=== PATIENT | female | born 1955 | race Caucasian/White ===

== ENCOUNTER 2018-10-02 19:45 | Inpatient (IN) | payer OTHER, BC | END 2018-10-12 14:43 | disposition home or self-care (01) | LOC: JICU 10-09 11:23 → J8W 10-11 11:27 → JERBED 10-03 01:15 → JER 19:45 → J7W 10-03 05:44 ==

== ENCOUNTER 2018-11-09 14:04 | Inpatient (IN) | payer OTHER, BC ==
--- NOTE | 2018-11-09 14:17 | PDOC ---
Rapid Medical Evaluation Chief Complaint: Pain, Acute Time Seen by Provider: 11/09/18 14:12 Medical Evaluation: Allergies Allergy/AdvReac Type Severity Reaction Status Date / Time No Known Allergies Allergy Verified 10/23/18 12:18 11/09/18 14:13 I have performed a brief in-person evaluation of this patient. The patient presents with a chief complaint of: right foot osteo- sent from wound care, + pain , no fevers Pertinent physical exam findings: dressed I have ordered the following: CBC/ CMP/IV - NO Radiology = MRI foot done here yesterday The patient will proceed to the ED for further evaluation. Discharge Disposition - Diagnosis Foot infection - Referrals - Patient Instructions - Post Discharge Activity
[2018-11-09 14:57] LABS: BASO % 0.7 % (0-2.0); EOS % 1.9 % (0-4.5); HEMATOCRIT 40.3 % (32.4-45.2); HEMOGLOBIN 13.8 GM/dL (10.7-15.3); LYMPH % 33.9 % (8-40); MCHC 34.1 g/dl (32.0-36.0); MEAN CELL VOLUME 96.6 fl (80-96); MEAN PLT VOLUME 9.2 fl (7.5-11.1); MONO % 5.2 % (3.8-10.2); NEUT % 58.3 % (42.8-82.8); PLATELET COUNT 147 K/MM3 (134-434); RBC 4.18 M/mm3 (3.60-5.2); RDW 15.2 % (11.6-15.6); WHITE BLOOD COUNT 5.2 K/mm3 (4.0-10.0)
--- NOTE | 2018-11-09 15:04 | PDOC ---
History of Present Illness - General Chief Complaint: Pain, Acute Stated Complaint: WOUND CARE Time Seen by Provider: 11/09/18 14:12 History Source: Patient Exam Limitations: No Limitations - History of Present Illness Initial Comments: 11/09/18 15:04 63YOF with h/o recent LLE cellulitis (admitted in 09/2018), NIDDM (on metformin and Januvia), PVD, HTN, HLD, and metastatic breast carcinoma who p/w right foot pain and osteomyelitis as diagnosed on MRI performed here yesterday. She was instructed by Wound Care to come in to the ED for admission. She sees Dr. Cabrera for wound care/vascular, Dr. Anders for podiatry, and Dr. Spears for cardiology. She denies f/c/n/v/d/c, streaking redness, SOB, chest pain, abdominal pain, or other symptoms. Past History - Past Medical History Allergies/Adverse Reactions: Allergies Allergy/AdvReac Type Severity Reaction Status Date / Time No Known Allergies Allergy Verified 11/09/18 14:14 Home Medications: Ambulatory Orders Amlodipine Besylate [Norvasc -] 5 mg PO DAILY 10/03/18 Cholecalciferol (Vitamin D3) [Vitamin D3 -] 1,000 unit PO DAILY 10/03/18 Lisinopril/Hydrochlorothiazide [Lisinopril-Hctz 20-12.5 mg Tab] 1 each PO DAILY 10/03/18 Sitagliptin Phosphate [Januvia] 100 mg PO DAILY 10/03/18 metFORMIN HCL 1,500 mg PO DAILY 10/03/18 Apixaban [Eliquis] 5 mg PO BID #60 tablet 10/12/18 Metoprolol Succinate [Toprol XL -] 50 mg PO DAILY #30 tab.sr.24h 10/12/18 Rosuvastatin [Crestor -] 10 mg PO HS #30 tablet 10/12/18 [id number] 9 mg PO DAILY 11/09/18 Pioglitazone HCl [Actos] 30 mg PO DAILY 11/09/18 Cancer: Yes (metastatic breast cancer) CVA: No (2005) COPD: No Diabetes: Yes (medication induced) HTN: Yes - Surgical History Lung Surgery: Yes (node removed - 2014) Orthopedic Surgery: Yes (right knee maniscus repair - 2015) - Immunization History Immunization Up to Date: Yes - Suicide/Smoking/Psychosocial Hx Smoking History: Former smoker Have you smoked in the past 12 months: No Number of Cigarettes Smoked Daily: 20 If you are a former smoker, when did you quit?: 1MONTH Information on smoking cessation initiated: No 'Breaking Loose' booklet given: 10/03/18 Hx Alcohol Use: No Drug/Substance Use Hx: No Review of Systems - Review of Systems Able to Perform ROS?: Yes Comments:: 11/09/18 15:18 GEN: no fever, chills, malaise, generalized weakness, or weight change HEENT: no ear pain, sore throat, vision change, or eye pain CV: no chest pain, palpitations, lightheadedness, syncope, or edema RESP: no cough, wheezing, or SOB GI: no abdominal pain, nausea, vomiting, diarrhea, constipation, or white/black/ bloody stool : no dysuria, hematuria, incontinence, retention, bleeding, or discharge MSK: right foot pain, otherwise no neck/back pain, muscle weakness/pain, or joint swelling/pain NEURO: no headache, seizure, vertigo, numbness, tingling, or focal weakness PSYCH: no substance use, no behavior change SKIN: no jaundice, no rash ROS otherwise negative except as noted in HPI *Physical Exam - Vital Signs Last Vital Signs Temp Pulse Resp BP Pulse Ox 98.5 F 60 16 149/83 96 11/09/18 14:15 11/09/18 14:15 11/09/18 14:15 11/09/18 14:15 11/09/18 14:15 - Physical Exam Comments: 11/09/18 15:18 GENERAL: well-appearing, A/Ox4, no distress, answers questions appropriately, obese, very pleasant HEENT: PERRLA, EOMI, moist mucous membranes NECK/BACK: no midline ttp, no spinal stepoff or deformity, no hematoma, full ROM , neck supple CARDIOVASCULAR: regular rate/rhythm, normal S1S2, no MGR, strong peripheral pulses, capillary refill <2 seconds, extremities wwp, no edema LUNGS/RESPIRATORY: no respiratory distress, CTAB GI/ABDOMEN: symmetric [id number], normoactive BS, soft, no ttp, no midline pulsatile masses : no CVA tenderness EXTREMITIES: right 4th toe dorsum just overlying interphalangeal joint is a 1x1cm ulceration with small amount of purulent drainage with small amount of surrounding erythema but which is very tender to palpation, distal sensation intact, right DP pulse not palpable but foot is warm/well perfused and temperature is equal to contralateral side, no muscle atrophy, no acute deformity SKIN: warm and dry, no pallor, no jaundice, no rash, no bruising, no skin breakdown, no cuts, no lesions, no streaking erythema NEUROLOGICAL: GCS 15, CN II-XII grossly intact, 5/5 strength proximally and distally, no facial droop, strength and sensation all intact ED Treatment Course - LABORATORY CBC & Chemistry Diagram: 11/09/18 14:40 11/09/18 14:40 - ADDITIONAL ORDERS Additional order review: 11/09/18 14:40 RBC 4.18 MCV 96.6 H MCHC 34.1 RDW 15.2 MPV 9.2 Neutrophils % 58.3 Lymphocytes % 33.9 Monocytes % 5.2 Eosinophils % 1.9 Basophils % 0.7 Medical Decision Making - Medical Decision Making 11/09/18 15:46 63YOF with NIDDM p/w non-healing foot ulcer now diagnosed with osteomyelitis on MRI yesterday. Initial Vital Signs Temp Pulse Resp BP Pulse Ox 98.5 F 60 16 149/83 96 11/09/18 14:15 11/09/18 14:15 11/09/18 14:15 11/09/18 14:15 11/09/18 14:15 Exam: As noted in Physical Exam section. DDX IBNLT: osteomyelitis from infected foot ulcer, cellulitis, less likely necrotizing soft tissue infection, necrotizing myositis, septic arthritis, gangrene,sepsis,etc. W/U ordered: Labs as noted below, no imaging as EDUARDO completed yesterday [place] ordered: Ofirmev, vancomycin, Zosyn EKG: Reviewed; results as noted in ECG Review section. Laboratory Tests 11/09/18 11/09/18 14:40 14:40 WBC 5.2 RBC 4.18 Hgb 13.8 Hct 40.3 MCV 96.6 H MCH 33.0 MCHC 34.1 RDW 15.2 Plt Count 147 MPV 9.2 Absolute Neuts (auto) 3.0 Neutrophils % 58.3 Lymphocytes % 33.9 Monocytes % 5.2 Eosinophils % 1.9 Basophils % 0.7 Nucleated RBC % 0 Sodium 135 L Potassium 5.1 Chloride 100 Carbon Dioxide 27 Anion Gap 8 BUN 35.8 H Creatinine 1.2 Est GFR (CKD-EPI)AfAm 54.92 Est GFR (CKD-EPI)NonAf 47.39 Random Glucose 178 H Calcium 10.3 H Total Bilirubin 0.8 AST 23 ALT 18 Alkaline Phosphatase 57 Total Protein 7.7 Albumin 3.8 The Pt is unsafe for discharge at this time. They require further hospital observation, workup, and treatment with IV antibiotics. Patient sees Dr. Bonilla for primary care. I spoke with MICHELLE Chilel with Dr. Beauchamp/[facility] service (admission to them requested by patient's OP provider. Decision to Admit order is placed to Dr. Beauchamp. *DC/Admit/Observation/Transfer Diagnosis at time of Disposition: Osteomyelitis Qualifiers: Osteomyelitis type: unspecified type Osteomyelitis location: foot Laterality: right Qualified Code(s): M86.9 - Osteomyelitis, unspecified - Discharge Dispostion Condition at time of disposition: Guarded Decision to Admit order: Yes - Referrals - Patient Instructions - Post Discharge Activity
[2018-11-09 15:32] LABS: ALBUMIN 3.8 g/dl (3.4-5.0); BILIRUBIN,TOTAL 0.8 mg/dL (0.2-1); BLOOD UREA NITROGEN 35.8 mg/dL (7-18); CALCIUM 10.3 mg/dL (8.5-10.1); CREATININE 1.2 mg/dL (0.55-1.3); POTASSIUM 5.1 mmol/L (3.5-5.1); TOT PROT 7.7 g/dl (6.4-8.2)
[2018-11-09] MEDS ORDERED: SODIUM CHLORIDE 0.9% 500 ML INFUS.BAG IV ONE (15:38)
[2018-11-09] MEDS ORDERED: VANCOMYCIN HCL 1,500 MG in DEXTROSE 5%-WATER - 500 ML IVPB ONE (15:38)
[2018-11-09] MEDS ORDERED: PIPERACILLIN/TAZOB 4.5 GM 4.5 GM in DEXTROSE 5%-WATER 100 ML IVPB ONE (15:50)
[2018-11-09] MEDS ORDERED: PIPERACILLIN/TAZOB 4.5 GM 4.5 GM/100 ML BAG IVPB ONE (16:06)
[2018-11-09] MEDS ORDERED: ACETAMINOPHEN 500 MG TABLET (FP) PO ONE (17:14)
[2018-11-09] MEDS ORDERED: ACETAMINOPHEN 325 MG TABLET (FP) ONE (17:15)
--- NOTE | 2018-11-09 19:05 | HP ---
Admitting History and Physical - Admission Chief Complaint: R foot 4th digit wound History of Present Illness: Patient is a 63 y/o female with past medical history of LLE cellulitis ( admitted on 10/02/18), DM, PVD, HTN, HLD, R breast CA. Patient presented to ER at request of tool and die repair due to ulcer on R foot 4thoste digit. Patient had MRI done on 11/08/18 which showed osteomyelitis. History Source: Patient Limitations to Obtaining History: No Limitations - Past Medical History Cardiovascular: Yes: HTN, Hyperlipdemia Heme/Onc: Yes: Cancer (Breast CA) Endocrine: Yes: Diabetes Mellitus, Other (Hyperglycemia) - Past Surgical History Past Surgical History: Yes: Mastectomy, Stent - Smoking History Smoking history: Former smoker Have you smoked in the past 12 months: No Aproximately how many cigarettes per day: 20 If you are a former smoker, when did you quit?: 1MONTH - Alcohol/Substance Use Hx Alcohol Use: No - Social History Usual Living Arrangement: Yes: With Spouse ADL: Independent History of Recent Travel: No Home Medications - Allergies Allergies/Adverse Reactions: Allergies Allergy/AdvReac Type Severity Reaction Status Date / Time No Known Allergies Allergy Verified 11/09/18 14:14 - Home Medications Home Medications: Ambulatory Orders Amlodipine Besylate [Norvasc -] 5 mg PO DAILY 10/03/18 Cholecalciferol (Vitamin D3) [Vitamin D3 -] 1,000 unit PO DAILY 10/03/18 Lisinopril/Hydrochlorothiazide [Lisinopril-Hctz 20-12.5 mg Tab] 1 each PO DAILY 10/03/18 Sitagliptin Phosphate [Januvia] 100 mg PO DAILY 10/03/18 metFORMIN HCL 1,500 mg PO DAILY 10/03/18 Apixaban [Eliquis] 5 mg PO BID #60 tablet 10/12/18 Metoprolol Succinate [Toprol XL -] 50 mg PO DAILY #30 tab.sr.24h 10/12/18 Rosuvastatin [Crestor -] 10 mg PO HS #30 tablet 10/12/18 [id number] 9 mg PO DAILY 11/09/18 Pioglitazone HCl [Actos] 30 mg PO DAILY 11/09/18 Review of Systems - Review of Systems Constitutional: reports: No Symptoms Eyes: reports: No Symptoms HENT: reports: No Symptoms Neck: reports: No Symptoms Cardiovascular: reports: No Symptoms Respiratory: reports: No Symptoms Gastrointestinal: reports: No Symptoms Genitourinary: reports: No Symptoms Breasts: reports: No Symptoms Reported Musculoskeletal: reports: Other (toe pain) Integumentary: reports: No Symptoms Neurological: reports: No Symptoms Endocrine: reports: No Symptoms Hematology/Lymphatic: reports: No Symptoms Psychiatric: reports: No Symptoms Physical Examination Vital Signs: Vital Signs Temperature 98.0 F 11/09/18 17:06 Pulse Rate 66 11/09/18 17:06 Respiratory Rate 16 11/09/18 17:06 Blood Pressure 109/58 L 11/09/18 17:06 O2 Sat by Pulse Oximetry (%) 96 11/09/18 17:06 Constitutional: Yes: No Distress, Calm Eyes: Yes: Conjunctiva Clear HENT: Yes: Atraumatic Neck: Yes: Supple Cardiovascular: Yes: Regular Rate and Rhythm Respiratory: Yes: Regular, CTA Bilaterally Gastrointestinal: Yes: Normal Bowel Sounds, Soft Musculoskeletal: Yes: WNL Extremities: Yes: WNL Edema: No Integumentary: Yes: Other (erythema and edema R foot 4th digit) Wound/Incision: Yes: Dressing Dry and Intact Neurological: Yes: Alert, Oriented Psychiatric: Yes: Alert, Oriented Labs: CBC, BMP 11/09/18 14:40 11/09/18 14:40 Imaging - Results MRI: Report Reviewed Problem List - Problems (1) Osteomyelitis Assessment/Plan: -Podiatry, ID, and VAscular consulted -MRI results reviewed -Vancomycin and Zosyn given in ER Code(s): M86.9 - OSTEOMYELITIS, UNSPECIFIED Qualifiers: Osteomyelitis type: unspecified type Osteomyelitis location: foot Laterality: right Qualified Code(s): M86.9 - Osteomyelitis, unspecified (2) Carotid artery disease Assessment/Plan: -Rosuvastatin Code(s): I77.9 - DISORDER OF ARTERIES AND ARTERIOLES, UNSPECIFIED Qualifiers: (3) Diabetes Assessment/Plan: -Metformin, Actos, Januvia -ISS -BGM ACHS -HgA1c Code(s): E11.9 - TYPE 2 DIABETES MELLITUS WITHOUT COMPLICATIONS Qualifiers: (4) HTN (hypertension) Assessment/Plan: -HCTZ, Amlodipine, Lisinopril -lowNa diet Code(s): I10 - ESSENTIAL (PRIMARY) HYPERTENSION Qualifiers: Assessment/Plan see problem list dvt ppx
[2018-11-09 19:32] VITALS: BMI 32.4
[2018-11-09] MEDS: HEPARIN NA (PORCINE) 5,000 UNITS/ML 1ML VIAL SQ SCH (22:44)
[2018-11-09] MEDS: APIXABAN 5 MG TABLET PO SCH (22:44)
[2018-11-09] MEDS: ROSUVASTATIN CA 10 MG TABLET (FP) PO SCH (22:44)
[2018-11-09] MEDS: INSULIN SLIDING SCALE (NOVOLOG) 1 VIAL SQ SCH (22:47)
[2018-11-09] MEDS: ZOLPIDEM TARTRATE 5 MG TABLET PO PRN (23:29)
[2018-11-09] MEDS: ACETAMINOPHEN 325 MG TABLET (FP) PO PRN (23:29)
[2018-11-10] MEDS: INSULIN SLIDING SCALE (NOVOLOG) 1 VIAL SQ SCH ×4 (06:03→21:54)
[2018-11-10] MEDS: metFORMIN HCL 500 MG TABLET (FP) PO SCH (06:18)
[2018-11-10] MEDS: PIOGLITAZONE HCL 30 MG TABLET (FP) PO SCH (06:18)
[2018-11-10] MEDS: sitaGLIPtin PHOSPHATE 100 MG TABLET (FP) PO SCH (06:18)
[2018-11-10] MEDS: ACETAMINOPHEN 325 MG TABLET (FP) PO PRN ×3 (06:35→21:20)
[2018-11-10 07:41] LABS: BASO % 0.7 % (0-2.0); EOS % 6.2 % (0-4.5); HEMATOCRIT 34.8 % (32.4-45.2); LYMPH % 32.6 % (8-40); MCH 33.4 pg (25.7-33.7); MCHC 34.5 g/dl (32.0-36.0); MEAN CELL VOLUME 96.9 fl (80-96); MEAN PLT VOLUME 8.9 fl (7.5-11.1); MONO % 7.6 % (3.8-10.2); NEUT % 52.9 % (42.8-82.8); RDW 15.1 % (11.6-15.6); WHITE BLOOD COUNT 3.7 K/mm3 (4.0-10.0)
[2018-11-10 07:51] LABS: BILIRUBIN,TOTAL 0.4 mg/dL (0.2-1); BLOOD UREA NITROGEN 28.1 mg/dL (7-18); PHOSPHOROUS 3.3 mg/dL (2.5-4.9); POTASSIUM 3.8 mmol/L (3.5-5.1); TOT PROT 5.9 g/dl (6.4-8.2)
--- NOTE | 2018-11-10 08:00 | CON.ID ---
Consult Consult Specialty:: infectious diseases Referred by:: Hospitalist Reason for Consultation:: non healing wound of the right 4th toe - History of Present Illness Chief Complaint: ulcer on he rt 4th toe History of Present Illness: 63YOF with h/o recent LLE cellulitis , NIDDM (on metformin and Januvia), PVD, HTN, HLD, and metastatic breast carcinoma who p/w right foot pain and osteomyelitis as diagnosed on MRI done couple of days back. She was instructed by Wound Care to come in to the ED for admission. She sees Dr. Cabrera for wound care/vascular, Dr. Anders for podiatry, and Dr. Spears for cardiology. She denies f/c/n/v/d/c, streaking redness, SOB, chest pain, abdominal pain, or other symptoms. wound not healing - History Source History Provided By: Patient Limitations to Obtaining History: No Limitations - Past Medical History Cardio/Vascular: Yes: HTN, Hyperlipdemia ...: No Endocrine: Yes: Diabetes Mellitus, Other (Hyperglycemia) - Past Surgical History Past Surgical History: Yes: Mastectomy, Stent - Alcohol/Substance Use Hx Alcohol Use: No - Smoking History Smoking history: Former smoker Have you smoked in the past 12 months: No Aproximately how many cigarettes per day: 20 If you are a former smoker, when did you quit?: 1MONTH - Social History ADL: Independent History of Recent Travel: No Home Medications - Allergies Allergies/Adverse Reactions: Allergies Allergy/AdvReac Type Severity Reaction Status Date / Time No Known Allergies Allergy Verified 11/09/18 14:14 - Home Medications Home Medications: Ambulatory Orders Amlodipine Besylate [Norvasc -] 5 mg PO DAILY 10/03/18 Cholecalciferol (Vitamin D3) [Vitamin D3 -] 1,000 unit PO DAILY 10/03/18 Lisinopril/Hydrochlorothiazide [Lisinopril-Hctz 20-12.5 mg Tab] 1 each PO DAILY 10/03/18 Sitagliptin Phosphate [Januvia] 100 mg PO DAILY 10/03/18 metFORMIN HCL 1,500 mg PO DAILY 10/03/18 Apixaban [Eliquis] 5 mg PO BID #60 tablet 10/12/18 Metoprolol Succinate [Toprol XL -] 50 mg PO DAILY #30 tab.sr.24h 10/12/18 Rosuvastatin [Crestor -] 10 mg PO HS #30 tablet 10/12/18 [id number] 9 mg PO DAILY 11/09/18 Pioglitazone HCl [Actos] 30 mg PO DAILY 11/09/18 Review of Systems - Review of Systems Constitutional: reports: No Symptoms Eyes: reports: No Symptoms HENT: reports: No Symptoms Neck: reports: No Symptoms Cardiovascular: reports: No Symptoms Respiratory: reports: No Symptoms Gastrointestinal: reports: No Symptoms Genitourinary: reports: No Symptoms Musculoskeletal: reports: Other Integumentary: reports: Erythema (3rd finger of the rt foot) Neurological: reports: No Symptoms Endocrine: reports: No Symptoms Hematology/Lymphatic: reports: No Symptoms Psychiatric: reports: No Symptoms Physical Exam Vital Signs: Vital Signs Temperature 97.5 F L 11/10/18 06:41 Pulse Rate 65 11/10/18 06:41 Respiratory Rate 20 11/10/18 06:41 Blood Pressure 125/48 L 11/10/18 06:41 O2 Sat by Pulse Oximetry (%) 98 11/09/18 21:00 Constitutional: Yes: Well Nourished, No Distress, Calm HENT: Yes: Atraumatic, Normocephalic Neck: Yes: Supple, Trachea Midline Cardiovascular: Yes: Regular Rate and Rhythm Respiratory: Yes: Regular, CTA Bilaterally Gastrointestinal: Yes: Normal Bowel Sounds, Soft Musculoskeletal: Yes: WNL Extremities: Yes: Other Wound/Incision: Yes: Dressing Removed (non healing ulcer of the rt 4th toe) Neurological: Yes: Alert, Oriented Psychiatric: Yes: Alert, Oriented Labs: CBC, BMP 11/10/18 06:43 Imaging - Results MRI: Report Reviewed, Image Reviewed Assessment/Plan Assessment/Plan Problem List - Problems (1) Diabetes Code(s): E11.9 - TYPE 2 DIABETES MELLITUS WITHOUT COMPLICATIONS (2) Metastatic breast carcinoma Code(s): C50.919 - MALIGNANT NEOPLASM OF UNSP SITE OF UNSPECIFIED FEMALE BREAST (3) Cellulitis of foot without toes, left Code(s): L03.116 - CELLULITIS OF LEFT LOWER LIMB 4 osteo of the rt foot plan will start patient on ceftriaxone await for cx report wound care rest as per the team
[2018-11-10 08:11] LABS: PLATELET COUNT 130 K/MM3 (134-434)
[2018-11-10] MEDS: amLODIPine BESYLATE 5 MG TABLET (FP) PO SCH (10:32)
[2018-11-10] MEDS: LISINOPRIL 20 MG TABLET (FP) PO SCH (10:33)
[2018-11-10] MEDS: APIXABAN 5 MG TABLET PO SCH ×2 (10:33→21:20)
[2018-11-10] MEDS: CHOLECALCIFEROL (VIT D3) 1,000 UNIT (25 MCG) TABLET PO SCH (10:33)
[2018-11-10] MEDS: HEPARIN NA (PORCINE) 5,000 UNITS/ML 1ML VIAL SQ SCH ×2 (10:33→21:20)
[2018-11-10] MEDS: HYDROCHLOROTHIAZIDE 12.5 MG CAPSULE (FP) PO SCH (10:33)
--- NOTE | 2018-11-10 10:35 | PN ---
Progress Note, Physician Chief Complaint: AWAKE ALERT CHART AND NOTES REVIEWED NO FEVER OR CHILLS - Current Medication List Current Medications: Active Medications Acetaminophen (Tylenol -) 650 mg PO Q6H PRN PRN Reason: PAIN LEVEL 1-5 Last Admin: 11/10/18 06:35 Dose: 650 mg Amlodipine Besylate (Norvasc -) 5 mg PO DAILY [facility] Apixaban (Eliquis -) 5 mg PO BID [facility] Last Admin: 11/09/18 22:44 Dose: 5 mg Cholecalciferol (Vitamin D3 -) 1,000 unit PO DAILY [facility] Heparin Sodium (Porcine) (Heparin -) 5,000 unit SQ BID [facility] Last Admin: 11/09/18 22:44 Dose: 5,000 unit Hydrochlorothiazide (Hctz -) 12.5 mg PO DAILY [facility] Ceftriaxone Sodium 2 gm/ (Dextrose) 100 mls @ 200 mls/hr IVPB DAILY [facility]; Protocol Insulin Aspart (Novolog Vial Sliding Scale -) 0 vial SQ ACHS [facility]; Protocol Last Admin: 11/10/18 06:03 Dose: Not Given Lisinopril (Prinivil) 20 mg PO DAILY [facility] Metformin HCl (Glucophage -) 1,500 mg PO DAILY@0700 [facility] Last Admin: 11/10/18 06:18 Dose: 1,500 mg Metoprolol Succinate (Toprol Xl -) 50 mg PO DAILY [facility] Pioglitazone HCl (Actos -) 30 mg PO DAILY@0700 [facility] Last Admin: 11/10/18 06:18 Dose: 30 mg Rosuvastatin Calcium (Crestor -) 10 mg PO HS [facility] Last Admin: 11/09/18 22:44 Dose: 10 mg Sitagliptin Phosphate (Januvia -) 100 mg PO DAILY@0700 [facility] Last Admin: 11/10/18 06:18 Dose: 100 mg Zolpidem Tartrate (Ambien -) 5 mg PO HS PRN PRN Reason: INSOMNIA Last Admin: 11/09/18 23:29 Dose: 5 mg - Objective Vital Signs: Vital Signs Temperature 97.5 F L 11/10/18 06:41 Pulse Rate 65 11/10/18 06:41 Respiratory Rate 20 11/10/18 06:41 Blood Pressure 125/48 L 11/10/18 06:41 O2 Sat by Pulse Oximetry (%) 98 11/09/18 21:00 Constitutional: Yes: No Distress Eyes: Yes: WNL HENT: Yes: WNL Neck: Yes: WNL Cardiovascular: Yes: WNL Respiratory: Yes: WNL Gastrointestinal: Yes: WNL Genitourinary: Yes: WNL Musculoskeletal: Yes: WNL Extremities: Yes: Deformity, Erythema Edema: No Integumentary: Yes: Pressure Ulcer (RIGHT TOE, RED INDURATED WITH STAGE 3 ULCER) ...Motor Strength: RLE Psychiatric: Yes: WNL Labs: CBC, BMP 11/10/18 06:43 11/10/18 06:43 Problem List - Problems (1) Osteomyelitis Code(s): M86.9 - OSTEOMYELITIS, UNSPECIFIED Qualifiers: Osteomyelitis type: unspecified type Osteomyelitis location: foot Laterality: right Qualified Code(s): M86.9 - Osteomyelitis, unspecified (2) Claudication Code(s): I73.9 - PERIPHERAL VASCULAR DISEASE, UNSPECIFIED (3) Diabetes Code(s): E11.9 - TYPE 2 DIABETES MELLITUS WITHOUT COMPLICATIONS Qualifiers: (4) HTN (hypertension) Code(s): I10 - ESSENTIAL (PRIMARY) HYPERTENSION Qualifiers: (5) Metastatic breast carcinoma Code(s): C50.919 - MALIGNANT NEOPLASM OF UNSP SITE OF UNSPECIFIED FEMALE BREAST (6) Peripheral arterial disease Code(s): I73.9 - PERIPHERAL VASCULAR DISEASE, UNSPECIFIED Assessment/Plan ID AND PODIATRY F/U DR GREGG ROUSSEAU SX TO SEE PATIENT ALSO IV ABX BGM CONTROL WOUND CARE SMOKING CESSATION D/W PATIENT
[2018-11-10] MEDS ORDERED: DEXTROSE 5%-WATER 100 ML IVPB ONE (11:32)
--- NOTE | 2018-11-10 11:43 | CONSULT ---
Consult Consult Specialty:: Podiatry Reason for Consultation:: chronic wound right 4th toe - History of Present Illness Chief Complaint: osteomyelitis - History Source History Provided By: Medical Record, Caregiver - Past Medical History Cardio/Vascular: Yes: HTN, Hyperlipdemia ...: No Endocrine: Yes: Diabetes Mellitus, Other (Hyperglycemia) - Past Surgical History Past Surgical History: Yes: Mastectomy, Stent - Alcohol/Substance Use Hx Alcohol Use: No - Smoking History Smoking history: Former smoker Have you smoked in the past 12 months: No Aproximately how many cigarettes per day: 20 If you are a former smoker, when did you quit?: 1MONTH - Social History ADL: Independent History of Recent Travel: No Home Medications - Allergies Allergies/Adverse Reactions: Allergies Allergy/AdvReac Type Severity Reaction Status Date / Time No Known Allergies Allergy Verified 11/09/18 14:14 - Home Medications Home Medications: Ambulatory Orders Amlodipine Besylate [Norvasc -] 5 mg PO DAILY 10/03/18 Cholecalciferol (Vitamin D3) [Vitamin D3 -] 1,000 unit PO DAILY 10/03/18 Lisinopril/Hydrochlorothiazide [Lisinopril-Hctz 20-12.5 mg Tab] 1 each PO DAILY 10/03/18 Sitagliptin Phosphate [Januvia] 100 mg PO DAILY 10/03/18 metFORMIN HCL 1,500 mg PO DAILY 10/03/18 Apixaban [Eliquis] 5 mg PO BID #60 tablet 10/12/18 Metoprolol Succinate [Toprol XL -] 50 mg PO DAILY #30 tab.sr.24h 10/12/18 Rosuvastatin [Crestor -] 10 mg PO HS #30 tablet 10/12/18 [id number] 9 mg PO DAILY 11/09/18 Pioglitazone HCl [Actos] 30 mg PO DAILY 11/09/18 Ceftriaxone [Rocephin -] 2 gm IVPB DAILY vial 11/13/18 Collagenase Clostridium Hist. [Santyl -] 1 applic TP DAILY #180 tube 11/13/18 Triamcinolone 0.1% Cream [Aristocort 0.1% Cream -] 1 applic TP BID #90 applic Physical Exam Vital Signs: Vital Signs Temperature 97.5 F L 11/10/18 06:41 Pulse Rate 65 11/10/18 06:41 Respiratory Rate 20 11/10/18 06:41 Blood Pressure 125/48 L 11/10/18 06:41 O2 Sat by Pulse Oximetry (%) 98 11/09/18 21:00 Extremities: Yes: Other (grade 3 ulceration 4th toe right, +necrotic tissue covering,) Labs: CBC, BMP 11/10/18 06:43 11/10/18 06:43 Assessment/Plan om? grade 3 wound ca ID on case. Vascular consult. Santyl to wound daily. Will follow. Post op shoe right foot.
--- NOTE | 2018-11-10 11:54 | EKG ---
Test Reason : Blood Pressure : / mmHG Vent. Rate : 063 BPM Atrial Rate : 063 BPM P-R Int : 194 ms QRS Dur : 092 ms QT Int : 424 ms P-R-T Axes : 044 -11 009 degrees QTc Int : 433 ms NORMAL SINUS RHYTHM POSSIBLE LEFT ATRIAL ENLARGEMENT NONSPECIFIC ST ABNORMALITY WHEN COMPARED WITH ECG OF 07-OCT-2018 11:49, NO SIGNIFICANT CHANGE WAS FOUND Confirmed by JAZMINE SANTIAGO MD ([id number]) on 11/10/2018 11:54:28 AM Referred By: Confirmed By:JAZMINE SANTIAGO MD
[2018-11-10] MEDS ORDERED: INSULIN (NOVOLOG) ASPART 100 UNITS/ML 10ML VIAL ONE (12:10)
[2018-11-10] MEDS: CEFTRIAXONE 2 GM in DEXTROSE 5%-WATER 100 ML IVPB SCH (12:11)
--- NOTE | 2018-11-10 14:47 | CONSULT ---
- Consultation REQUESTING PROVIDER: CONSULT REQUEST: We have been asked to surgically evaluate this patient for Right toe ulcer PCP:Mesha Beauchamp HISTORY OF PRESENT ILLNESS: Patient was consulted to the Vascular service for evaluation of Rt toe ulcer. Pt was seen in wound care clinic by Dr. Anders and sent to the hospital for admission for osteomyolitis. Pt states that she been treating this toe wound for several months. Pt had a Rt leg angiogram and plasty by Dr. Cabrera in September 2018. Pt states she has been having a lot of pain and swelling in her toe. Denies fever, chills, n/v. PMHx: HTN, DM, HLD Home Medications Medication Instructions Recorded Amlodipine Besylate [Norvasc -] 5 mg PO DAILY 10/03/18 Cholecalciferol (Vitamin D3) 1,000 unit PO DAILY 10/03/18 [Vitamin D3 -] Lisinopril/Hydrochlorothiazide 1 each PO DAILY 10/03/18 [Lisinopril-Hctz 20-12.5 mg Tab] Sitagliptin Phosphate [Januvia] 100 mg PO DAILY 10/03/18 metFORMIN HCL 1,500 mg PO DAILY 10/03/18 Apixaban [Eliquis] 5 mg PO BID #60 tablet 10/12/18 Metoprolol Succinate [Toprol XL -] 50 mg PO DAILY #30 tab.sr.24h 10/12/18 Rosuvastatin [Crestor -] 10 mg PO HS #30 tablet 10/12/18 [id number] 9 mg PO DAILY 11/09/18 Pioglitazone HCl [Actos] 30 mg PO DAILY 11/09/18 Allergies Allergy/AdvReac Type Severity Reaction Status Date / Time No Known Allergies Allergy Verified 11/09/18 14:14 PHYSICAL EXAM: GENERAL: Awake, alert, and fully oriented, in no acute distress. HEAD: Normal with no signs of trauma. EYES: PERRL, sclera anicteric, conjunctiva clear. NECK: Normal ROM, JVD, or masses. LUNGS: breathing comfortably HEART: Regular rate and rhythm. ABDOMEN: Soft, nontender, not distended, normoactive bowel sounds, no guarding, no rebound, no masses. No organomegaly. MUSCULOSKELETAL: Normal ROM at all joints. No bony deformities or tenderness. No CVA tenderness. LOWER EXTREMITIES: Rt foot faint DP pulse, feet are warm and pink, 1 cm ulcer on dorsal aspect of 2nd toe with erythema and tenderness. NEUROLOGICAL: Normal speech, gait not observed. PSYCH: Cooperative. Good eye contact. Appropriate mood and affect. SKIN: Warm, dry, normal turgor, no rashes or lesions noted. Vital Signs Temperature 97.5 F L 11/10/18 06:41 Pulse Rate 65 11/10/18 06:41 Respiratory Rate 20 11/10/18 06:41 Blood Pressure 125/48 L 11/10/18 06:41 O2 Sat by Pulse Oximetry (%) 98 11/09/18 21:00 Lab Results WBC 3.7 K/mm3 (4.0-10.0) L 11/10/18 06:43 RBC 3.60 M/mm3 (3.60-5.2) 11/10/18 06:43 Hgb 12.0 GM/dL (10.7-15.3) 11/10/18 06:43 Hct 34.8 % (32.4-45.2) 11/10/18 06:43 MCV 96.9 fl (80-96) H 11/10/18 06:43 MCHC 34.5 g/dl (32.0-36.0) 11/10/18 06:43 RDW 15.1 % (11.6-15.6) 11/10/18 06:43 Plt Count 130 K/MM3 (134-434) L 11/10/18 06:43 Sodium 138 mmol/L (136-145) 11/10/18 06:43 Potassium 3.8 mmol/L (3.5-5.1) 11/10/18 06:43 Chloride 106 mmol/L (98-107) 11/10/18 06:43 Carbon Dioxide 24 mmol/L (21-32) 11/10/18 06:43 Anion Gap 8 MMOL/L (8-16) 11/10/18 06:43 BUN 28.1 mg/dL (7-18) H 11/10/18 06:43 Creatinine 1.0 mg/dL (0.55-1.3) 11/10/18 06:43 Random Glucose 154 mg/dL (74-106) H 11/10/18 06:43 Calcium 9.0 mg/dL (8.5-10.1) 11/10/18 06:43 Problem List - Problems (1) Osteomyelitis Assessment/Plan: Plan -no acute vascular intervention needed at this time. -wound care per podiatry -abx as per medicine/ID Please contact vascular team if any changes Code(s): M86.9 - OSTEOMYELITIS, UNSPECIFIED Qualifiers: Osteomyelitis type: unspecified type Osteomyelitis location: foot Laterality: right Qualified Code(s): M86.9 - Osteomyelitis, unspecified
[2018-11-10] MEDS: COLLAGENASE CLOSTRIDIUM HIST. 30 GRAMS TUBE TP SCH (16:02)
[2018-11-10] MEDS: ROSUVASTATIN CA 10 MG TABLET (FP) PO SCH (21:20)
[2018-11-10] MEDS: ZOLPIDEM TARTRATE 5 MG TABLET PO PRN (21:55)
[2018-11-11] MEDS: sitaGLIPtin PHOSPHATE 100 MG TABLET (FP) PO SCH (06:08)
[2018-11-11] MEDS: PIOGLITAZONE HCL 30 MG TABLET (FP) PO SCH (06:08)
[2018-11-11] MEDS: ACETAMINOPHEN 325 MG TABLET (FP) PO PRN ×2 (06:08→22:32)
[2018-11-11] MEDS: metFORMIN HCL 500 MG TABLET (FP) PO SCH (06:08)
[2018-11-11] MEDS: INSULIN SLIDING SCALE (NOVOLOG) 1 VIAL SQ SCH ×4 (06:10→21:19)
[2018-11-11] MEDS ORDERED: DEXTROSE 5%-WATER 100 ML IVPB ONE (09:16)
[2018-11-11] MEDS: LISINOPRIL 20 MG TABLET (FP) PO SCH (09:50)
[2018-11-11] MEDS: CEFTRIAXONE 2 GM in DEXTROSE 5%-WATER 100 ML IVPB SCH (09:50)
[2018-11-11] MEDS: APIXABAN 5 MG TABLET PO SCH ×2 (09:50→21:19)
[2018-11-11] MEDS: amLODIPine BESYLATE 5 MG TABLET (FP) PO SCH (09:50)
[2018-11-11] MEDS: CHOLECALCIFEROL (VIT D3) 1,000 UNIT (25 MCG) TABLET PO SCH (09:50)
[2018-11-11] MEDS: HEPARIN NA (PORCINE) 5,000 UNITS/ML 1ML VIAL SQ SCH ×2 (09:50→21:19)
[2018-11-11] MEDS: HYDROCHLOROTHIAZIDE 12.5 MG CAPSULE (FP) PO SCH (09:50)
[2018-11-11] MEDS: COLLAGENASE CLOSTRIDIUM HIST. 30 GRAMS TUBE TP SCH (09:51)
--- NOTE | 2018-11-11 12:24 | PN ---
Progress Note, Physician History of Present Illness: patient doing well no complaints toe improving - Current Medication List Current Medications: Active Medications Acetaminophen (Tylenol -) 650 mg PO Q6H PRN PRN Reason: PAIN LEVEL 1-5 Last Admin: 11/11/18 06:08 Dose: 650 mg Amlodipine Besylate (Norvasc -) 5 mg PO DAILY [facility] Last Admin: 11/11/18 09:50 Dose: 5 mg Apixaban (Eliquis -) 5 mg PO BID [facility] Last Admin: 11/11/18 09:50 Dose: 5 mg Cholecalciferol (Vitamin D3 -) 1,000 unit PO DAILY [facility] Last Admin: 11/11/18 09:50 Dose: 1,000 unit Collagenase (Santyl -) 1 applic TP DAILY [facility]; Protocol Last Admin: 11/11/18 09:51 Dose: 1 applic Heparin Sodium (Porcine) (Heparin -) 5,000 unit SQ BID [facility] Last Admin: 11/11/18 09:50 Dose: 5,000 unit Hydrochlorothiazide (Hctz -) 12.5 mg PO DAILY [facility] Last Admin: 11/11/18 09:50 Dose: 12.5 mg Ceftriaxone Sodium 2 gm/ (Dextrose) 100 mls @ 200 mls/hr IVPB DAILY [facility]; Protocol Last Admin: 11/11/18 09:50 Dose: 200 mls/hr Insulin Aspart (Novolog Vial Sliding Scale -) 0 vial SQ ACHS [facility]; Protocol Last Admin: 11/11/18 11:59 Dose: Not Given Lisinopril (Prinivil) 20 mg PO DAILY [facility] Last Admin: 11/11/18 09:50 Dose: 20 mg Metformin HCl (Glucophage -) 1,500 mg PO DAILY@0700 [facility] Last Admin: 11/11/18 06:08 Dose: 1,500 mg Metoprolol Succinate (Toprol Xl -) 50 mg PO DAILY [facility] Last Admin: 11/11/18 09:50 Dose: 50 mg Pioglitazone HCl (Actos -) 30 mg PO DAILY@0700 [facility] Last Admin: 11/11/18 06:08 Dose: 30 mg Rosuvastatin Calcium (Crestor -) 10 mg PO HS [facility] Last Admin: 11/10/18 21:20 Dose: 10 mg Sitagliptin Phosphate (Januvia -) 100 mg PO DAILY@0700 [facility] Last Admin: 11/11/18 06:08 Dose: 100 mg Zolpidem Tartrate (Ambien -) 5 mg PO HS PRN PRN Reason: INSOMNIA Last Admin: 11/10/18 21:55 Dose: 5 mg - Objective Vital Signs: Vital Signs Temperature 98.1 F 11/11/18 09:49 Pulse Rate 79 11/11/18 09:49 Respiratory Rate 18 11/11/18 09:49 Blood Pressure 124/62 11/11/18 09:49 O2 Sat by Pulse Oximetry (%) 98 11/10/18 21:00 Constitutional: Yes: No Distress, Calm Cardiovascular: Yes: S1, S2 Respiratory: Yes: Regular, CTA Bilaterally Gastrointestinal: Yes: Normal Bowel Sounds, Soft Musculoskeletal: Yes: Other Extremities: Yes: Other Wound/Incision: Yes: Other (improving) Neurological: Yes: Alert, Oriented Psychiatric: Yes: Alert, Oriented Labs: CBC, BMP 11/10/18 06:43 11/10/18 06:43 Assessment/Plan Assessment/Plan Problem List - Problems (1) Diabetes Code(s): E11.9 - TYPE 2 DIABETES MELLITUS WITHOUT COMPLICATIONS (2) Metastatic breast carcinoma Code(s): C50.919 - MALIGNANT NEOPLASM OF UNSP SITE OF UNSPECIFIED FEMALE BREAST (3) Cellulitis of foot without toes, left Code(s): L03.116 - CELLULITIS OF LEFT LOWER LIMB 4 osteo of the rt foot plan continue current abx will need it for 4-6 weeks
--- NOTE | 2018-11-11 12:57 | PN ---
Progress Note (short form) - Note Progress Note: FUV 4th toe right. vss +resolving cellulitis, +grade 3 woud 4th toe PIPJ, -drainage, -mal odor, om pvd ca Pt is scheduled for a picc line Tuesday. HBO consult done. Will follow. Santyl dressing change daily. Post op shoe right. Son Rito present throughout visit.
--- NOTE | 2018-11-11 13:10 | PN ---
Progress Note, Physician - Current Medication List Current Medications: Active Medications Acetaminophen (Tylenol -) 650 mg PO Q6H PRN PRN Reason: PAIN LEVEL 1-5 Last Admin: 11/11/18 06:08 Dose: 650 mg Amlodipine Besylate (Norvasc -) 5 mg PO DAILY [facility] Last Admin: 11/11/18 09:50 Dose: 5 mg Apixaban (Eliquis -) 5 mg PO BID [facility] Last Admin: 11/11/18 09:50 Dose: 5 mg Cholecalciferol (Vitamin D3 -) 1,000 unit PO DAILY [facility] Last Admin: 11/11/18 09:50 Dose: 1,000 unit Collagenase (Santyl -) 1 applic TP DAILY [facility]; Protocol Last Admin: 11/11/18 09:51 Dose: 1 applic Heparin Sodium (Porcine) (Heparin -) 5,000 unit SQ BID [facility] Last Admin: 11/11/18 09:50 Dose: 5,000 unit Hydrochlorothiazide (Hctz -) 12.5 mg PO DAILY [facility] Last Admin: 11/11/18 09:50 Dose: 12.5 mg Ceftriaxone Sodium 2 gm/ (Dextrose) 100 mls @ 200 mls/hr IVPB DAILY [facility]; Protocol Last Admin: 11/11/18 09:50 Dose: 200 mls/hr Insulin Aspart (Novolog Vial Sliding Scale -) 0 vial SQ ACHS [facility]; Protocol Last Admin: 11/11/18 11:59 Dose: Not Given Lisinopril (Prinivil) 20 mg PO DAILY [facility] Last Admin: 11/11/18 09:50 Dose: 20 mg Metformin HCl (Glucophage -) 1,500 mg PO DAILY@0700 [facility] Last Admin: 11/11/18 06:08 Dose: 1,500 mg Metoprolol Succinate (Toprol Xl -) 50 mg PO DAILY [facility] Last Admin: 11/11/18 09:50 Dose: 50 mg Pioglitazone HCl (Actos -) 30 mg PO DAILY@0700 [facility] Last Admin: 11/11/18 06:08 Dose: 30 mg Rosuvastatin Calcium (Crestor -) 10 mg PO HS [facility] Last Admin: 11/10/18 21:20 Dose: 10 mg Sitagliptin Phosphate (Januvia -) 100 mg PO DAILY@0700 [facility] Last Admin: 11/11/18 06:08 Dose: 100 mg Zolpidem Tartrate (Ambien -) 5 mg PO HS PRN PRN Reason: INSOMNIA Last Admin: 11/10/18 21:55 Dose: 5 mg - Objective Vital Signs: Vital Signs Temperature 98.1 F 11/11/18 09:49 Pulse Rate 79 11/11/18 09:49 Respiratory Rate 18 11/11/18 09:49 Blood Pressure 124/62 11/11/18 09:49 O2 Sat by Pulse Oximetry (%) 98 11/10/18 21:00 Cardiovascular: Yes: Regular Rate and Rhythm Respiratory: Yes: Regular, CTA Bilaterally Gastrointestinal: Yes: Normal Bowel Sounds, Soft Wound/Incision: Yes: Dressing Removed, Reddened, Excoriated Labs: CBC, BMP 11/10/18 06:43 11/10/18 06:43 Assessment/Plan - Problems (1) Osteomyelitis Assessment/Plan: -Podiatry, ID, and VAscular consulted -MRI results reviewed -Vancomycin and Zosyn given in ER Code(s): M86.9 - OSTEOMYELITIS, UNSPECIFIED Qualifiers: Osteomyelitis type: unspecified type Osteomyelitis location: foot Laterality: right Qualified Code(s): M86.9 - Osteomyelitis, unspecified (2) Carotid artery disease Assessment/Plan: -Rosuvastatin Code(s): I77.9 - DISORDER OF ARTERIES AND ARTERIOLES, UNSPECIFIED Qualifiers: (3) Diabetes Assessment/Plan: -Metformin, Actos, Januvia -ISS -BGM ACHS -HgA1c Code(s): E11.9 - TYPE 2 DIABETES MELLITUS WITHOUT COMPLICATIONS Qualifiers: (4) HTN (hypertension) Assessment/Plan: -HCTZ, Amlodipine, Lisinopril -lowNa diet Code(s): I10 - ESSENTIAL (PRIMARY) HYPERTENSION Qualifiers:
[2018-11-11] MEDS: ROSUVASTATIN CA 10 MG TABLET (FP) PO SCH (21:19)
[2018-11-11] MEDS: ZOLPIDEM TARTRATE 5 MG TABLET PO PRN (22:21)
[2018-11-12] MEDS: INSULIN SLIDING SCALE (NOVOLOG) 1 VIAL SQ SCH ×4 (06:21→21:38)
[2018-11-12] MEDS: metFORMIN HCL 500 MG TABLET (FP) PO SCH (07:10)
[2018-11-12] MEDS: sitaGLIPtin PHOSPHATE 100 MG TABLET (FP) PO SCH (07:10)
[2018-11-12] MEDS: PIOGLITAZONE HCL 30 MG TABLET (FP) PO SCH (07:13)
[2018-11-12] MEDS ORDERED: DEXTROSE 5%-WATER 100 ML IVPB ONE (09:47)
[2018-11-12] MEDS ORDERED: PT OWN MED DRAWER 7, Y5N ONE (09:48)
[2018-11-12] MEDS: amLODIPine BESYLATE 5 MG TABLET (FP) PO SCH (09:50)
[2018-11-12] MEDS: LISINOPRIL 20 MG TABLET (FP) PO SCH (09:50)
[2018-11-12] MEDS: HYDROCHLOROTHIAZIDE 12.5 MG CAPSULE (FP) PO SCH (09:50)
[2018-11-12] MEDS: CHOLECALCIFEROL (VIT D3) 1,000 UNIT (25 MCG) TABLET PO SCH (09:50)
[2018-11-12] MEDS: CEFTRIAXONE 2 GM in DEXTROSE 5%-WATER 100 ML IVPB SCH (09:51)
[2018-11-12] MEDS: COLLAGENASE CLOSTRIDIUM HIST. 30 GRAMS TUBE TP SCH (09:51)
[2018-11-12] MEDS: APIXABAN 5 MG TABLET PO SCH ×2 (10:00→21:38)
[2018-11-12] MEDS: HEPARIN NA (PORCINE) 5,000 UNITS/ML 1ML VIAL SQ SCH (10:00)
--- NOTE | 2018-11-12 11:40 | PN ---
Progress Note, Physician - Current Medication List Current Medications: Active Medications Acetaminophen (Tylenol -) 650 mg PO Q6H PRN PRN Reason: PAIN LEVEL 1-5 Last Admin: 11/11/18 22:32 Dose: 650 mg Amlodipine Besylate (Norvasc -) 5 mg PO DAILY [facility] Last Admin: 11/12/18 09:50 Dose: 5 mg Apixaban (Eliquis -) 5 mg PO BID [facility] Last Admin: 11/11/18 21:19 Dose: 5 mg Cholecalciferol (Vitamin D3 -) 1,000 unit PO DAILY [facility] Last Admin: 11/12/18 09:50 Dose: 1,000 unit Collagenase (Santyl -) 1 applic TP DAILY [facility]; Protocol Last Admin: 11/12/18 09:51 Dose: 1 applic Heparin Sodium (Porcine) (Heparin -) 5,000 unit SQ BID [facility] Last Admin: 11/11/18 21:19 Dose: 5,000 unit Hydrochlorothiazide (Hctz -) 12.5 mg PO DAILY [facility] Last Admin: 11/12/18 09:50 Dose: 12.5 mg Ceftriaxone Sodium 2 gm/ (Dextrose) 100 mls @ 200 mls/hr IVPB DAILY [facility]; Protocol Last Admin: 11/12/18 09:51 Dose: 200 mls/hr Insulin Aspart (Novolog Vial Sliding Scale -) 0 vial SQ ACHS [facility]; Protocol Last Admin: 11/12/18 11:26 Dose: Not Given Lisinopril (Prinivil) 20 mg PO DAILY [facility] Last Admin: 11/12/18 09:50 Dose: 20 mg Metformin HCl (Glucophage -) 1,500 mg PO DAILY@0700 [facility] Last Admin: 11/12/18 07:10 Dose: 1,500 mg Metoprolol Succinate (Toprol Xl -) 50 mg PO DAILY [facility] Last Admin: 11/12/18 09:50 Dose: 50 mg Pioglitazone HCl (Actos -) 30 mg PO DAILY@0700 [facility] Last Admin: 11/12/18 07:13 Dose: 30 mg Rosuvastatin Calcium (Crestor -) 10 mg PO HS [facility] Last Admin: 11/11/18 21:19 Dose: 10 mg Sitagliptin Phosphate (Januvia -) 100 mg PO DAILY@0700 [facility] Last Admin: 11/12/18 07:10 Dose: 100 mg Zolpidem Tartrate (Ambien -) 5 mg PO HS PRN PRN Reason: INSOMNIA Last Admin: 11/11/18 22:21 Dose: 5 mg - Objective Vital Signs: Vital Signs Temperature 98 F 11/12/18 05:30 Pulse Rate 60 11/12/18 05:30 Respiratory Rate 16 11/12/18 05:30 Blood Pressure 88/50 L 11/12/18 05:30 O2 Sat by Pulse Oximetry (%) 100 11/11/18 21:00 Cardiovascular: Yes: S1, S2 Respiratory: Yes: Regular, CTA Bilaterally Gastrointestinal: Yes: Normal Bowel Sounds, Soft Extremities: Yes: Erythema, Other (SWELLING AND TENDERNESS OF TOE) Labs: CBC, BMP 11/10/18 06:43 11/10/18 06:43 Assessment/Plan - Problems (1) Osteomyelitis Assessment/Plan: -Podiatry, ID, and VAscular consulted -MRI results reviewed -Vancomycin and Zosyn given in ER -ON ROCEPHIN -PICC LINE Code(s): M86.9 - OSTEOMYELITIS, UNSPECIFIED Qualifiers: Osteomyelitis type: unspecified type Osteomyelitis location: foot Laterality: right Qualified Code(s): M86.9 - Osteomyelitis, unspecified (2) Carotid artery disease Assessment/Plan: -Rosuvastatin Code(s): I77.9 - DISORDER OF ARTERIES AND ARTERIOLES, UNSPECIFIED Qualifiers: (3) Diabetes Assessment/Plan: -Metformin, Actos, Januvia -ISS -BGM ACHS -HgA1c Code(s): E11.9 - TYPE 2 DIABETES MELLITUS WITHOUT COMPLICATIONS Qualifiers: (4) HTN (hypertension) Assessment/Plan: -HCTZ, Amlodipine, Lisinopril -lowNa diet Code(s): I10 - ESSENTIAL (PRIMARY) HYPERTENSION Qualifiers:
[2018-11-12] MEDS: ACETAMINOPHEN 325 MG TABLET (FP) PO PRN (15:53)
[2018-11-12] MEDS ORDERED: FLUCONAZOLE 50 MG TABLET PO ONE (18:45)
[2018-11-12] MEDS: TRIAMCINOLONE ACET 0.1% CREAM 15 GM TUBE TP SCH (20:33)
[2018-11-12] MEDS: ROSUVASTATIN CA 10 MG TABLET (FP) PO SCH (21:39)
[2018-11-12] MEDS: ZOLPIDEM TARTRATE 5 MG TABLET PO PRN (21:42)
[2018-11-13] MEDS: metFORMIN HCL 500 MG TABLET (FP) PO SCH (06:21)
[2018-11-13] MEDS: INSULIN SLIDING SCALE (NOVOLOG) 1 VIAL SQ SCH ×2 (06:23→11:16)
[2018-11-13] MEDS: PIOGLITAZONE HCL 30 MG TABLET (FP) PO SCH (06:23)
[2018-11-13] MEDS: sitaGLIPtin PHOSPHATE 100 MG TABLET (FP) PO SCH (06:23)
[2018-11-13 07:51] LABS: BASO % 0.8 % (0-2.0); EOS % 3.6 % (0-4.5); HEMATOCRIT 38.2 % (32.4-45.2); HEMOGLOBIN 13.2 GM/dL (10.7-15.3); LYMPH % 40.4 % (8-40); MCH 33.4 pg (25.7-33.7); MCHC 34.5 g/dl (32.0-36.0); MEAN CELL VOLUME 96.9 fl (80-96); MEAN PLT VOLUME 8.8 fl (7.5-11.1); MONO % 8.6 % (3.8-10.2); NEUT % 46.6 % (42.8-82.8); PLATELET COUNT 201 K/MM3 (134-434); RBC 3.94 M/mm3 (3.60-5.2); WHITE BLOOD COUNT 4.1 K/mm3 (4.0-10.0)
--- NOTE | 2018-11-13 08:05 | DS ---
Physical Examination Vital Signs: Vital Signs Temperature 98.1 F 11/13/18 06:52 Pulse Rate 64 11/13/18 06:52 Respiratory Rate 20 11/13/18 06:52 Blood Pressure 114/69 11/13/18 06:52 O2 Sat by Pulse Oximetry (%) 100 11/12/18 09:00 Constitutional: Yes: No Distress Eyes: Yes: WNL HENT: Yes: WNL Neck: Yes: WNL Cardiovascular: Yes: WNL Respiratory: Yes: WNL Gastrointestinal: Yes: WNL Musculoskeletal: Yes: WNL Extremities: Yes: Deformity Integumentary: Yes: Erythema, Pressure Ulcer, Skin Tear (RIGHT TOE) Wound/Incision: Yes: Open to air, Reddened, Excoriated Neurological: Yes: Pre-Existing Deficit ...Motor Strength: RLE Psychiatric: Yes: WNL Discharge Summary Reason For Visit: OSTEOMYELITIS Current Active Problems Osteomyelitis (Acute) Procedures: Principal: MRI Hospital Course: ADMITTED FOR OSTEOMYELITIS RIGHT TOE, TREATED IV ABX, WOUND CARE, PICC LINE FOR 5 WEEKS Condition: Improved - Instructions Diet, Activity, Other Instructions: WILL NEED TOTAL OF 35 DAYS OF ANTIBIOTICS HOME WITH [facility] Disposition: VNS/HOME HEALTH CARE - Home Medications Comprehensive Discharge Medication List: Ambulatory Orders Amlodipine Besylate [Norvasc -] 5 mg PO DAILY 10/03/18 Cholecalciferol (Vitamin D3) [Vitamin D3 -] 1,000 unit PO DAILY 10/03/18 Lisinopril/Hydrochlorothiazide [Lisinopril-Hctz 20-12.5 mg Tab] 1 each PO DAILY 10/03/18 Sitagliptin Phosphate [Januvia] 100 mg PO DAILY 10/03/18 metFORMIN HCL 1,500 mg PO DAILY 10/03/18 Apixaban [Eliquis] 5 mg PO BID #60 tablet 10/12/18 Metoprolol Succinate [Toprol XL -] 50 mg PO DAILY #30 tab.sr.24h 10/12/18 Rosuvastatin [Crestor -] 10 mg PO HS #30 tablet 10/12/18 [id number] 9 mg PO DAILY 11/09/18 Pioglitazone HCl [Actos] 30 mg PO DAILY 11/09/18
--- NOTE | 2018-11-13 08:07 | PN ---
Progress Note, Physician History of Present Illness: patient doing well no complaints toe improving - Current Medication List Current Medications: Active Medications Acetaminophen (Tylenol -) 650 mg PO Q6H PRN PRN Reason: PAIN LEVEL 1-5 Last Admin: 11/12/18 15:53 Dose: 650 mg Amlodipine Besylate (Norvasc -) 5 mg PO DAILY [facility] Last Admin: 11/12/18 09:50 Dose: 5 mg Apixaban (Eliquis -) 5 mg PO BID [facility] Last Admin: 11/12/18 21:38 Dose: Not Given Cholecalciferol (Vitamin D3 -) 1,000 unit PO DAILY [facility] Last Admin: 11/12/18 09:50 Dose: 1,000 unit Collagenase (Santyl -) 1 applic TP DAILY [facility]; Protocol Last Admin: 11/12/18 09:51 Dose: 1 applic Hydrochlorothiazide (Hctz -) 12.5 mg PO DAILY [facility] Last Admin: 11/12/18 09:50 Dose: 12.5 mg Ceftriaxone Sodium 2 gm/ (Dextrose) 100 mls @ 200 mls/hr IVPB DAILY [facility]; Protocol Last Admin: 11/12/18 09:51 Dose: 200 mls/hr Insulin Aspart (Novolog Vial Sliding Scale -) 0 vial SQ ACHS [facility]; Protocol Last Admin: 11/13/18 06:23 Dose: Not Given Lisinopril (Prinivil) 20 mg PO DAILY [facility] Last Admin: 11/12/18 09:50 Dose: 20 mg Metformin HCl (Glucophage -) 1,500 mg PO DAILY@0700 [facility] Last Admin: 11/13/18 06:21 Dose: 1,500 mg Metoprolol Succinate (Toprol Xl -) 50 mg PO DAILY [facility] Last Admin: 11/12/18 09:50 Dose: 50 mg Pioglitazone HCl (Actos -) 30 mg PO DAILY@0700 [facility] Last Admin: 11/13/18 06:23 Dose: 30 mg Rosuvastatin Calcium (Crestor -) 10 mg PO HS [facility] Last Admin: 11/12/18 21:39 Dose: 10 mg Sitagliptin Phosphate (Januvia -) 100 mg PO DAILY@0700 [facility] Last Admin: 11/13/18 06:23 Dose: 100 mg Triamcinolone Acetonide (Aristocort 0.1% Cream -) 1 applic TP BID [facility] Last Admin: 11/12/18 20:33 Dose: 1 applic - Objective Vital Signs: Vital Signs Temperature 98.1 F 11/13/18 06:52 Pulse Rate 64 11/13/18 06:52 Respiratory Rate 20 11/13/18 06:52 Blood Pressure 114/69 11/13/18 06:52 O2 Sat by Pulse Oximetry (%) 100 11/12/18 09:00 Constitutional: Yes: No Distress, Calm Cardiovascular: Yes: Regular Rate and Rhythm Respiratory: Yes: Regular, CTA Bilaterally Gastrointestinal: Yes: Normal Bowel Sounds, Soft Musculoskeletal: Yes: WNL Extremities: Yes: Other Neurological: Yes: Alert, Oriented Psychiatric: Yes: Alert, Oriented Assessment/Plan Assessment/Plan Problem List - Problems (1) Diabetes Code(s): E11.9 - TYPE 2 DIABETES MELLITUS WITHOUT COMPLICATIONS (2) Metastatic breast carcinoma Code(s): C50.919 - MALIGNANT NEOPLASM OF UNSP SITE OF UNSPECIFIED FEMALE BREAST (3) Cellulitis of foot without toes, left Code(s): L03.116 - CELLULITIS OF LEFT LOWER LIMB 4 osteo of the rt foot plan continue ceftriaxone for 5 more weeks
[2018-11-13 08:41] LABS: ALBUMIN 3.1 g/dl (3.4-5.0); BILIRUBIN,TOTAL 0.3 mg/dL (0.2-1); BLOOD UREA NITROGEN 15.7 mg/dL (7-18); CALCIUM 9.6 mg/dL (8.5-10.1); CREATININE 0.8 mg/dL (0.55-1.3); POTASSIUM 4.4 mmol/L (3.5-5.1); TOT PROT 6.5 g/dl (6.4-8.2)
[2018-11-13] MEDS ORDERED: DEXTROSE 5%-WATER 100 ML IVPB ONE (09:32)
[2018-11-13] MEDS: APIXABAN 5 MG TABLET PO SCH (09:35)
[2018-11-13] MEDS: amLODIPine BESYLATE 5 MG TABLET (FP) PO SCH (09:35)
[2018-11-13] MEDS: LISINOPRIL 20 MG TABLET (FP) PO SCH (09:35)
[2018-11-13] MEDS: HYDROCHLOROTHIAZIDE 12.5 MG CAPSULE (FP) PO SCH (09:36)
[2018-11-13 09:39] LABS: ERYTHROCYTE SEDIMENTATION RATE 51 mm/hr (0-30)
[2018-11-13] MEDS: COLLAGENASE CLOSTRIDIUM HIST. 30 GRAMS TUBE TP SCH (09:39)
[2018-11-13] MEDS: CHOLECALCIFEROL (VIT D3) 1,000 UNIT (25 MCG) TABLET PO SCH (09:39)
[2018-11-13] MEDS: CEFTRIAXONE 2 GM in DEXTROSE 5%-WATER 100 ML IVPB SCH (09:39)
[2018-11-13] MEDS: TRIAMCINOLONE ACET 0.1% CREAM 15 GM TUBE TP SCH (09:40)
--- NOTE | 2018-11-13 11:42 | PN ---
Progress Note (short form) - Note Progress Note: FUV 4th toe right. vss +resolving cellulitis, +grade 3 woud 4th toe PIPJ, -drainage, -mal odor, om pvd ca picc line today. HBO outpatient. Will follow. Santyl dressing change daily. Post op shoe right. pt to follow up in my office outpatient.
[2018-11-13 12:20] VITALS: TEMP 97.8
[2018-11-13 12:21] VITALS: BP 106/58; PULSE 69
--- NOTE | 2018-11-15 | PDOC ---
Documentation entered by Agusto Bennett SCRIBE, acting as scribe for Wayne Guzman MD. Wayne Guzman MD: This documentation has been prepared by the Sabrina hsu Elijah, SCRIBE, under my direction and personally reviewed by me in its entirety. I confirm that the documentation accurately reflects all work, treatment, procedures, and medical decision making performed by me. Attending Attestation - Resident Resident Name: BurnsSwati - ED Attending Attestation I have performed the following: I have examined & evaluated the patient, The case was reviewed & discussed with the resident, I agree w/resident's findings & plan, Exceptions are as noted - HPI HPI: 11/09/18 16:03 Patient is a 63 year old female recent LLE cellulitis (admitted in 09/2018), NIDDM (on metformin and Januvia), PVD, HTN, HLD, and metastatic breast carcinoma who presents to the ED with pain in the right foot due to a non- healing blister and osteomyelitis found x1 day prior on an MRI. Patient reports that she had a blister that she popped around a month ago which has not been healing and giving her persistent pain. The patient then got an MRI with her Vamper which revealed the osteomyelitis which prompted her visit to the ED today. Denies fever, chills, nausea, vomiting, CP, SOB, and Diarrhea. Allergies:NKA PCP: Dr. Ren Vamper: Dr. Bishop Cardiologists: Dr. Douglas - Physicial Exam PE: 11/09/18 16:01 GENERAL: The patient is awake, alert, and fully oriented, Nontoxic - in no acute distress. HEAD: Normocephalic, atraumatic. EYES: extraocular movements intact, sclera anicteric, conjunctiva clear. ENT: Normal voice, Moist mucous membranes. NECK: Normal range of motion, supple LUNGS: Breath sounds equal, clear to auscultation bilaterally. No wheezes, no rhonchi, no rales. HEART: Regular rate and rhythm, normal S1 and S2 without murmur, rub or gallop. ABDOMEN: Soft, nontender, EXTREMITIES: Normal range of motion, moderate ttp and wound on dorsum of 4th digit on R foot with mild surrounding erythema, no stresaking, sensation intact throughout. NEUROLOGICAL: No facial assymetry, Normal speech, moving lll 4 ext spontaneously and symemtrically PSYCH: Normal mood, normal affect. SKIN: Warm, Dry, normal turgor, - Medical Decision Making 11/09/18 15:59 63y F hx LLE cellulitis (admitted in 09/2018), NIDDM (on metformin and Januvia), PVD, HTN, HLD, and metastatic breast carcinoma presents with worsening pain on her chronic wound, found to have underlying osteomyleitis and sent to the ED for evaluation and abx. No systemic complaints will start abx for osteomyelitis anticipate admissoin for further management
== END 2018-11-13 17:05 | disposition home health service (06) | DRG 638 ==
LOC: JER 14:04 → JERBED 15:36 → J8W 17:56
PROVIDERS: ADMIT Family Medicine; ATTEND Family Medicine
PROC: 02HV33Z Insertion of Infusion Device into Superior Vena Cava, Percutaneous Approach (ICD-10-PCS; principal; 2018-11-13)
PROC: B548ZZA Ultrasonography of Superior Vena Cava, Guidance (ICD-10-PCS; 2018-11-13)
DX: E11.69 Type 2 diabetes mellitus with other specified complication (principal); M86.8X7 Other osteomyelitis, ankle and foot; L03.116 Cellulitis of left lower limb; E11.51 Type 2 diabetes mellitus with diabetic peripheral angiopathy without gangrene; E66.9 Obesity, unspecified; I10 Essential (primary) hypertension; Z68.33 Body mass index [BMI] 33.0-33.9, adult; Z85.3 Personal history of malignant neoplasm of breast; Z79.84 Long term (current) use of oral hypoglycemic drugs
CPT/HCPCS: 36415; 36569; 73718-TC-RT; 77001-TC-FY; 80048; 80053; 82150; 82962; 83036; 83690; 83735; 84100; 84436; 84443; 85025; 85651; 86140; 87040; 87070; 87077; 87205; 93005; 93010; 99282-25; C1751; G0463-25; J1644

== ENCOUNTER 2019-04-07 10:23 | Inpatient (IN) | payer OTHER, BC ==
--- NOTE | 2019-04-07 10:49 | PDOC ---
History of Present Illness - General Chief Complaint: Wound Stated Complaint: SENT BY PCP Time Seen by Provider: 04/07/19 10:35 History Source: Patient Exam Limitations: No Limitations - History of Present Illness Initial Comments: 04/07/19 10:55 MS. Avendano is a 63-year-old female who presents to the emergency department due to persistent osteo-of the right fourth toe and infection requiring amputation She has a past medical history of LLE cellulitis (admitted on 10/02/18), PVD, HTN , HLD, metastatic breast cancer currently on Ibrance and a experimental drug called GDC (which --> hyperglycemia). Patient's HPI begins in September on Mother's Day when she wore a pair of ill fitting shoes and cause a blister on her right fourth toe She developed a subsequent cellulitis, began treatment with Dr. Anders Patient was then assessed by vascular who recommended CTA of the aorta with runoff. This demonstrate a SFA occlusion with reconstitution distally. Patient then had an angiogram followed by a stent. Patient was followed by Dr. Anders as an outpatient, and noted to have a nonhealing wound of the right fourth digit MRI performed on 11/08/18 which showed osteomyelitis. PICC line was placed and patient was treated for 5 weeks with abx Pt was then started on HBO treatments (completed 59 treatments) Pt has been doing well until Tuesday when she noted severe pain in the toe She was seen by Dr Bishop on who expressed purulence and recommended amputation at this time No fevers, no other systemic signs of illness PMH: HTN, HLD, Metastatic Breast Cancer, DM, PVD PSH: Mastectomy Meds: Norvasc, Vit D, Lisinopril/Hydrochlorothiazide 20-12.5 mg, Eliquis 5 mg PO BID, Crestor 10 mg PO HS, Regranex 15 gm TP, Gdc-0077 6 mg PO DAILY, Vitamin C, MVI, ALL: NKDA Social: (+) tobacco use, no drugs ROS: GENERAL/CONSTITUTIONAL: No: fever, chills, weakness, loss of appetite. HEAD, EYES, EARS, NOSE AND THROAT: No: change in vision, ear pain, discharge, sore throat, throat swelling. CARDIOVASCULAR: No: chest pain, lightheadedness, palpitations, syncope RESPIRATORY: No: cough, shortness of breath, wheezing, hemoptysis, stridor. GASTROINTESTINAL: No: nausea, vomiting, diarrhea, abdominal cramping, rectal bleeding, constipation. GENITOURINARY: No: dysuria, hematuria, frequency, urgency, flank pain. MUSCULOSKELETAL: No: back pain, neck pain, joint pain, muscle swelling or pain SKIN: Yes: Nonhealing wound of the dorsum of the right fourth digit, NEUROLOGIC: No: headache, vertigo, paresthesias, weakness ENDOCRINE: No: unexplained weight gain or loss HEMATOLOGIC/LYMPHATIC: No: anemia, easy bleeding, swelling nodes. PE: GENERAL: The patient is in no acute distress. HEAD: Normal with no signs of trauma. EYES: PERRLA, EOMI, sclera anicteric, conjunctiva clear. ENT: Ears normal, nares patent, oropharynx clear without exudates. Moist mucous membranes. NECK: Normal range of motion, supple without lymphadenopathy LUNGS: Breath sounds equal, clear to auscultation bilaterally. No wheezes, and no crackles. HEART:Regular rate and rhythm, normal S1 and S2 without murmur, rub or gallop. ABDOMEN: Soft, nontender, normoactive bowel sounds. EXTREMITIES: Normal range of motion, (+) fourth toe swelling, erythema, tenderness NEUROLOGICAL: Cranial nerves II through XII grossly intact. Normal speech. No focal neurological deficits. MUSCULOSKELETAL: Back non-tender to palpation, no CVA tenderness SKIN: Swelling, erythema noted of the fourth digit, nonhealing wound of the fourth digit, expressible purulence, tender to palpation 04/07/19 11:19 04/07/19 11:21 04/07/19 11:22 04/07/19 11:23 04/07/19 11:27 04/07/19 11:28 04/07/19 11:29 Is this a multiple visit Asthma Patient?: No Past History - Past Medical History Allergies/Adverse Reactions: Allergies Allergy/AdvReac Type Severity Reaction Status Date / Time No Known Allergies Allergy Verified 04/07/19 10:28 Home Medications: Ambulatory Orders Amlodipine Besylate [Norvasc -] 5 mg PO DAILY 10/03/18 Cholecalciferol (Vitamin D3) [Vitamin D3 -] 1,000 unit PO DAILY 10/03/18 Lisinopril/Hydrochlorothiazide [Lisinopril-Hctz 20-12.5 mg Tab] 1 each PO DAILY 10/03/18 Apixaban [Eliquis] 5 mg PO BID #60 tablet 10/12/18 Rosuvastatin [Crestor -] 10 mg PO HS #30 tablet 10/12/18 Triamcinolone 0.1% Cream [Aristocort 0.1% Cream -] 1 applic TP BID #90 applic Becaplermin [Regranex] 15 gm TP DAILY #1 gel..gram. 11/23/18 Gdc-0077 6 mg PO DAILY 01/29/19 Ascorbic Acid [Vitamin C -] 1,000 mg PO DAILY 03/22/19 Multivitamin [Multiple Vitamins] 1 tab PO DAILY 03/22/19 Zinc Acetate [Galzin] 50 mg PO DAILY 03/22/19 Anemia: No Asthma: No Cancer: Yes (breast with mets) Cardiac Disorders: No CVA: No (2005) COPD: No CHF: No Dementia: No Diabetes: Yes (medication induced) GI Disorders: No Disorders: No HTN: Yes Hypercholesterolemia: Yes Liver Disease: No Seizures: No Thyroid Disease: No Other medical history: right mastectomy with lymph nodes 2008 - Surgical History Abdominal Surgery: No Appendectomy: No Cardiac Surgery: No Cholecystectomy: No Lung Surgery: Yes (node removed - 2014) Neurologic Surgery: No Orthopedic Surgery: Yes (right knee maniscus repair - 2015) - Immunization History Immunization Up to Date: Yes - Psycho Social/Smoking Cessation Hx Smoking History: Never smoked Have you smoked in the past 12 months: No Number of Cigarettes Smoked Daily: 20 If you are a former smoker, when did you quit?: September 2018 'Breaking Loose' booklet given: 10/03/18 Hx Alcohol Use: No Drug/Substance Use Hx: No Substance Use Type: None Hx Substance Use Treatment: No *Physical Exam - Vital Signs Last Vital Signs Temp Pulse Resp BP Pulse Ox 97.5 F L 90 18 127/68 99 04/07/19 10:24 04/07/19 10:24 04/07/19 10:24 04/07/19 10:24 04/07/19 10:24 Medical Decision Making - Medical Decision Making 04/07/19 11:26 63-year-old female presenting to the emergency department due to nonhealing wound of the fourth toe, found to be osteo-, status post treatment with no resolution. Right fourth toe is now acutely infected and will require amputation We will do preop labs We will admit to Dr. Gee per Dr. Anders's note Clinical impression: Right fourth toe osteomyelitis and acute purulent infection, initial presentation Discharge - Discharge Information Problems reviewed: Yes Clinical Impression/Diagnosis: Peripheral arterial disease, Toe infection Osteomyelitis Qualifiers: Osteomyelitis type: other Osteomyelitis location: other site Qualified Code(s) : M86.8X8 - Other osteomyelitis, other site Condition: Stable - Admission Yes - Follow up/Referral - Patient Discharge Instructions - Post Discharge Activity
[2019-04-07] MEDS ORDERED: ACETAMINOPHEN WITH CODEINE 300MG/30MG TABLET PO ONE (11:10)
[2019-04-07] MEDS ORDERED: VANCOMYCIN 1 GM in D5W (PRE-DOCKED) 1,000 MG/250 ML IVPB ONE (11:43)
[2019-04-07] MEDS ORDERED: PIPERACILLIN/TAZOB 4.5 GM 4.5 GM in DEXTROSE 5%-WATER 100 ML IVPB ONE (11:44)
[2019-04-07] MEDS ORDERED: ACETAMINOPHEN WITH CODEINE 300MG/30MG TABLET ONE (11:53)
[2019-04-07 12:22] LABS: BASO % 1.1 % (0-2.0); EOS % 3.2 % (0-4.5); HEMATOCRIT 35.4 % (32.4-45.2); HEMOGLOBIN 12.2 GM/dL (10.7-15.3); LYMPH % 23.9 % (8-40); MCHC 34.3 g/dl (32.0-36.0); MEAN CELL VOLUME 104.9 fl (80-96); MEAN PLT VOLUME 7.7 fl (7.5-11.1); MONO % 7.3 % (3.8-10.2); NEUT % 64.5 % (42.8-82.8); PLATELET COUNT 298 K/MM3 (134-434); RBC 3.38 M/mm3 (3.60-5.2); RDW 14.7 % (11.6-15.6); WHITE BLOOD COUNT 4.4 K/mm3 (4.0-10.0)
[2019-04-07] MEDS ORDERED: VANCOMYCIN 1 GRAM (PRE-DOCKED) 1,000 MG/250 ML BAG IVPB ONE ×2 (12:25→23:45)
[2019-04-07] MEDS ORDERED: PIPERACILLIN/TAZOB 4.5 GM 4.5 GM/100 ML BAG IVPB ONE (12:25)
[2019-04-07 12:42] LABS: INR 1.03 (0.83-1.09); PROTHROMBIN TIME (PATIENT) 12.2 SEC (9.7-13.0)
[2019-04-07 12:46] LABS: ALBUMIN 3.5 g/dl (3.4-5.0); BILIRUBIN,TOTAL 0.3 mg/dL (0.2-1); CALCIUM 9.8 mg/dL (8.5-10.1); CREATININE 0.8 mg/dL (0.55-1.3); POTASSIUM 4.1 mmol/L (3.5-5.1)
--- NOTE | 2019-04-07 13:35 | CONSULT ---
Consult Consult Specialty:: podiatry Reason for Consultation:: infected non healing painful 4th toe right foot - History of Present Illness Chief Complaint: painful non healing toe wound right History of Present Illness: chronic wound since september of 2018 - History Source History Provided By: Medical Record Limitations to Obtaining History: No Limitations - Past Medical History Cardio/Vascular: Yes: HTN, Hyperlipdemia Endocrine: Yes: Diabetes Mellitus, Other (Hyperglycemia) - Past Surgical History Past Surgical History: Yes: Mastectomy, Stent - Alcohol/Substance Use Hx Alcohol Use: No - Smoking History Smoking history: Never smoked Have you smoked in the past 12 months: No Aproximately how many cigarettes per day: 20 If you are a former smoker, when did you quit?: September 2018 - Social History ADL: Independent History of Recent Travel: No Home Medications - Allergies Allergies/Adverse Reactions: Allergies Allergy/AdvReac Type Severity Reaction Status Date / Time No Known Allergies Allergy Verified 04/07/19 10:28 - Home Medications Home Medications: Ambulatory Orders Amlodipine Besylate [Norvasc -] 5 mg PO DAILY 10/03/18 Cholecalciferol (Vitamin D3) [Vitamin D3 -] 1,000 unit PO DAILY 10/03/18 Lisinopril/Hydrochlorothiazide [Lisinopril-Hctz 20-12.5 mg Tab] 1 each PO DAILY 10/03/18 Rosuvastatin [Crestor -] 10 mg PO HS #30 tablet 10/12/18 Gdc-0077 6 mg PO DAILY 01/29/19 Ascorbic Acid [Vitamin C -] 1,000 mg PO DAILY 03/22/19 Multivitamin [Multiple Vitamins] 1 tab PO DAILY 03/22/19 Zinc Acetate [Galzin] 50 mg PO DAILY 03/22/19 Apixaban [Eliquis] 5 mg PO BID 04/07/19 Pioglitazone HCl [Actos] 30 mg PO DAILY 04/07/19 Sitagliptin Phosphate [Januvia] 100 mg PO DAILY 04/07/19 metFORMIN HCL [Metformin HCl] 1,500 mg PO DAILY 04/07/19 Physical Exam Vital Signs: Vital Signs Temperature 97.5 F L 04/07/19 10:24 Pulse Rate 90 04/07/19 10:24 Respiratory Rate 18 04/07/19 10:24 Blood Pressure 127/68 04/07/19 10:24 O2 Sat by Pulse Oximetry (%) 99 04/07/19 10:24 Wound/Incision: Yes: Other (chronic non healing open wound right 4th toe) Labs: CBC, BMP 04/07/19 11:58 04/07/19 11:58 Assessment/Plan om non healing toe wound dm Vascular clearance Dr. Cabrera. ID Dr. Burgos. Pt has agreed to debridement of bone and soft tissue right foot with amputation 4th toe right. Pt understands all risks, benefits, and alternatives. Scheduled for OR Tuesday around noon time. NPO after midnight Tuesday. Please maximize for OR. Will follow. Dr. Gee for medical clearance.
--- NOTE | 2019-04-07 18:05 | EKG ---
Test Reason : Blood Pressure : / mmHG Vent. Rate : 077 BPM Atrial Rate : 077 BPM P-R Int : 160 ms QRS Dur : 092 ms QT Int : 406 ms P-R-T Axes : 043 -04 040 degrees QTc Int : 459 ms NORMAL SINUS RHYTHM NORMAL ECG WHEN COMPARED WITH ECG OF 09-NOV-2018 16:11, NO SIGNIFICANT CHANGE WAS FOUND Confirmed by MD Souza Edward ([id number]) on 04/07/2019 6:04:21 PM Referred By: Confirmed By:Juan Carlos Souza MD
[2019-04-07 18:56] VITALS: BMI 34.7
[2019-04-07] MEDS ORDERED: ZOLPIDEM TARTRATE 5 MG TABLET PO ONE (23:15)
--- NOTE | 2019-04-07 23:50 | HP ---
Admitting History and Physical - Admission History of Present Illness: Pt is a 63 y/o female with PMH significant for Breast CA(with mets to lung). Pt has been on Ibrance and experimental GDC(she subsequently developed drug- induced hyperglycemia) and PVD> Pt now presented to ER with c/o non-healing infected Rt 4th toe ulcer/persistent OM. Pt states wound initially started in September and she was treated for cellulitis at the time without significant improvement. Vascular evaluation was done and she was found to have SFA occlusion for which she had an angiogram/stent. Still had non-healing of the Rt toe ulcer and MRI on 11/08/18 revealed Rt 4th toe OM. She completed a 5-wk course of IV antibiotics ( 12/16/18) and was getting HBO at the time with persistence of the lesion. Pt developed severe pain in the toe with edema about 4 days ago and was seen by Otologist who noted purulent drainage. Pt is now admitted for amputation of rt toe. - Past Medical History Cardiovascular: Yes: HTN, Hyperlipdemia ...: No Heme/Onc: Yes: Cancer (Breast CA) Musculoskeletal: Yes: Other (PAD) Endocrine: Yes: Diabetes Mellitus, Other (Hyperglycemia) - Past Surgical History Past Surgical History: Yes: Mastectomy, Stent - Smoking History Smoking history: Never smoked Have you smoked in the past 12 months: No Aproximately how many cigarettes per day: 20 If you are a former smoker, when did you quit?: September 2018 - Alcohol/Substance Use Hx Alcohol Use: No - Social History ADL: Independent History of Recent Travel: No Home Medications - Allergies Allergies/Adverse Reactions: Allergies Allergy/AdvReac Type Severity Reaction Status Date / Time No Known Allergies Allergy Verified 04/07/19 10:28 - Home Medications Home Medications: Ambulatory Orders Amlodipine Besylate [Norvasc -] 5 mg PO DAILY 10/03/18 Cholecalciferol (Vitamin D3) [Vitamin D3 -] 1,000 unit PO DAILY 10/03/18 Lisinopril/Hydrochlorothiazide [Lisinopril-Hctz 20-12.5 mg Tab] 1 each PO DAILY 10/03/18 Rosuvastatin [Crestor -] 10 mg PO HS #30 tablet 10/12/18 Gdc-0077 6 mg PO DAILY 01/29/19 Ascorbic Acid [Vitamin C -] 1,000 mg PO DAILY 03/22/19 Multivitamin [Multiple Vitamins] 1 tab PO DAILY 03/22/19 Zinc Acetate [Galzin] 50 mg PO DAILY 03/22/19 Apixaban [Eliquis] 5 mg PO BID 04/07/19 Pioglitazone HCl [Actos] 30 mg PO DAILY 04/07/19 Sitagliptin Phosphate [Januvia] 100 mg PO DAILY 04/07/19 metFORMIN HCL [Metformin HCl] 1,500 mg PO DAILY 04/07/19 Family Medical History Family History: Unremarkable Review of Systems - Review of Systems Constitutional: reports: No Symptoms Eyes: reports: No Symptoms HENT: reports: No Symptoms Neck: reports: No Symptoms Cardiovascular: reports: No Symptoms Respiratory: reports: No Symptoms Gastrointestinal: reports: No Symptoms Genitourinary: reports: No Symptoms Physical Examination Vital Signs: Vital Signs Temperature 98.1 F 04/07/19 21:00 Pulse Rate 72 04/07/19 21:00 Respiratory Rate 17 04/07/19 21:00 Blood Pressure 123/67 04/07/19 21:00 O2 Sat by Pulse Oximetry (%) 100 04/07/19 17:59 Constitutional: Yes: Well Nourished Eyes: Yes: WNL HENT: Yes: WNL Neck: Yes: WNL, Supple Cardiovascular: Yes: WNL, Regular Rate and Rhythm Respiratory: Yes: WNL, Regular, CTA Bilaterally Gastrointestinal: Yes: WNL, Normal Bowel Sounds, Soft, Abdomen, Obese Extremities: Yes: Other (Rt 4th toe w/ ulcer/erythema) Neurological: Yes: WNL, Alert, Oriented ...Motor Strength: WNL Labs: CBC, BMP 04/07/19 11:58 04/07/19 11:58 Problem List - Problems (1) Osteomyelitis Assessment/Plan: Podiatry consult noted Pt is medically cleared for surgery on 04/09/19 Pt stopped eliquis on 04/04/19 Cont wound care Cont IV antibxs ID consult Code(s): M86.9 - OSTEOMYELITIS, UNSPECIFIED Qualifiers: Osteomyelitis type: other Osteomyelitis location: other site Qualified Code(s): M86.8X8 - Other osteomyelitis, other site (2) HTN (hypertension) Assessment/Plan: BP stable Cont antihypertensives Code(s): I10 - ESSENTIAL (PRIMARY) HYPERTENSION (3) HLD (hyperlipidemia) Assessment/Plan: Cont crestor Code(s): E78.5 - HYPERLIPIDEMIA, UNSPECIFIED (4) Peripheral arterial disease Assessment/Plan: Eliquis on hold due to surgery Code(s): I73.9 - PERIPHERAL VASCULAR DISEASE, UNSPECIFIED
[2019-04-08] MEDS ORDERED: PIPERACILLIN/TAZOBACTAM 3.375 GM VIAL IVPB ONE ×3 (01:21→17:30)
[2019-04-08] MEDS ORDERED: DEXTROSE 5%-WATER - 50 ML IVPB ONE ×3 (01:21→17:30)
[2019-04-08] MEDS: PIPERACILLIN/TAZOB 3.375 GM 3.375 GM in DEXTROSE 5%-WATER - 50 ML IVPB SCH ×3 (02:14→18:24)
[2019-04-08] MEDS ORDERED: metFORMIN HCL 500 MG TABLET (FP) PO SCH (07:00)
[2019-04-08] MEDS: INSULIN SLIDING SCALE (NOVOLOG) 1 VIAL SQ SCH ×2 (07:06→12:34)
[2019-04-08 09:38] LABS: BASO % 1.5 % (0-2.0); EOS % 5.3 % (0-4.5); HEMATOCRIT 32.1 % (32.4-45.2); HEMOGLOBIN 11.1 GM/dL (10.7-15.3); LYMPH % 32.8 % (8-40); MCH 36.5 pg (25.7-33.7); MCHC 34.7 g/dl (32.0-36.0); MEAN CELL VOLUME 105.3 fl (80-96); MEAN PLT VOLUME 8.1 fl (7.5-11.1); MONO % 7.8 % (3.8-10.2); NEUT % 52.6 % (42.8-82.8); PLATELET COUNT 283 K/MM3 (134-434); RBC 3.05 M/mm3 (3.60-5.2); RDW 14.7 % (11.6-15.6); WHITE BLOOD COUNT 3.2 K/mm3 (4.0-10.0)
[2019-04-08 09:56] LABS: ALBUMIN 2.9 g/dl (3.4-5.0); BILIRUBIN,TOTAL 0.4 mg/dL (0.2-1); BLOOD UREA NITROGEN 15.8 mg/dL (7-18); CREATININE 0.6 mg/dL (0.55-1.3); TOT PROT 5.8 g/dl (6.4-8.2)
[2019-04-08] MEDS ORDERED: LISINOPRIL 10 MG TABLET (FP) PO SCH (10:00)
[2019-04-08] MEDS ORDERED: PATIENT'S OWN MEDICATION (NON-FORMULARY) (Lisinopril/Hydrochlorothiazide [Lisinopril-Hctz PO SCH (10:00)
[2019-04-08] MEDS: LISINOPRIL 20 MG TABLET (FP) PO SCH (10:15)
[2019-04-08] MEDS: amLODIPine BESYLATE 5 MG TABLET (FP) PO SCH (10:15)
[2019-04-08] MEDS: HYDROCHLOROTHIAZIDE 12.5 MG CAPSULE (FP) PO SCH (10:15)
[2019-04-08] MEDS ORDERED: PT OWN MED DRAWER 7, Y5N ONE ×3 (11:35→17:30)
[2019-04-08] MEDS ORDERED: ACETAMINOPHEN WITH CODEINE 300MG/30MG TABLET PO PRN (11:57)
--- NOTE | 2019-04-08 14:22 | CON.ID ---
Consult - History of Present Illness History of Present Illness: 63 y.o. female with PMH of Breast CA with mets to lung s/p mastectomy and chemo and has been on Ibrance and experimental GDC, drug-induced hyperglycemia, PVD presents with c/o non-healing infected Rt 4th toe ulcer/persistent OM. Pt states wound initially started in September and was treated for cellulitis at the time without significant improvement. Vascular evaluation was done and she was found to have SFA occlusion for which she had an angiogram and stent. Still had non-healing of the Rt toe ulcer and MRI on 11/08/18 revealed Rt 4th toe OM. She completed a 5-wk course of IV antibiotics ( 12/16/18) and was getting HBO at the time with persistence of the lesion. 4 days ago pt developed severe pain in the toe with edema and was seen by [facility] who noted purulent drainage . Amputation at this time was recommended. Currently she is alert, afebrile, and her toe pain is controlled with tylenol with codeine although still painful with touch. She is awaiting toe amputation. Pt has no other specific complaints. - History Source History Provided By: Patient Limitations to Obtaining History: No Limitations - Past Medical History Cardio/Vascular: Yes: HTN, Hyperlipdemia, Other ...: No Heme/Onc: Yes: Other (Breast CA with mets to lung) Infectious Disease: Yes: Other (non-healing Rt toe ulcer/OM) Endocrine: Yes: Diabetes Mellitus, Other (Hyperglycemia drug-induced) - Past Surgical History Past Surgical History: Yes: Mastectomy, Stent (SFA occlusion) - Alcohol/Substance Use Hx Alcohol Use: No - Smoking History Smoking history: Never smoked Have you smoked in the past 12 months: No Aproximately how many cigarettes per day: 20 If you are a former smoker, when did you quit?: September 2018 - Social History ADL: Independent History of Recent Travel: No Home Medications - Allergies Allergies/Adverse Reactions: Allergies Allergy/AdvReac Type Severity Reaction Status Date / Time No Known Allergies Allergy Verified 04/07/19 10:28 - Home Medications Home Medications: Ambulatory Orders Amlodipine Besylate [Norvasc -] 5 mg PO DAILY 10/03/18 Cholecalciferol (Vitamin D3) [Vitamin D3 -] 1,000 unit PO DAILY 10/03/18 Lisinopril/Hydrochlorothiazide [Lisinopril-Hctz 20-12.5 mg Tab] 1 each PO DAILY 10/03/18 Rosuvastatin [Crestor -] 10 mg PO HS #30 tablet 10/12/18 Gdc-0077 6 mg PO DAILY 01/29/19 Ascorbic Acid [Vitamin C -] 1,000 mg PO DAILY 03/22/19 Multivitamin [Multiple Vitamins] 1 tab PO DAILY 03/22/19 Zinc Acetate [Galzin] 50 mg PO DAILY 03/22/19 Apixaban [Eliquis] 5 mg PO BID 04/07/19 Pioglitazone HCl [Actos] 30 mg PO DAILY 04/07/19 Sitagliptin Phosphate [Januvia] 100 mg PO DAILY 04/07/19 metFORMIN HCL [Metformin HCl] 1,500 mg PO DAILY 04/07/19 Review of Systems - Review of Systems Constitutional: reports: No Symptoms. denies: Chills, Diaphoresis, Fever, Lethargy, Loss of Appetite, Malaise, Night Sweats, Unintentional Wgt. Loss, Weakness, Other Eyes: reports: No Symptoms. denies: Blind Spots, Blurred Vision, Double Vision , Eye Pain, Floaters, Photophobia, Recent Change in Vision, Other HENT: reports: No Symptoms. denies: Difficult Swallowing, Ear Discharge, Ear Pain, Epistaxis, Gingival Bleeding, Hearing Loss, Mouth Swelling, Nasal Congestion, Ocular Prosthesis, Throat Pain, Toothache, Ringing in Ears, Other Neck: reports: No Symptoms. denies: Decreased ROM, Lumps, Pain on Movement, Stiffness, Swollen Glands, Tenderness, Other Cardiovascular: reports: No Symptoms. denies: Chest Pain, Edema, Palpitations, Shortness of Breath, Other Respiratory: reports: No Symptoms. denies: Cough, Exercise Intolerance, Hemoptysis, Orthopnea, PND, Snoring, SOB, SOB on Exertion, Wheezing, Other Gastrointestinal: reports: No Symptoms. denies: Abdominal Pain, Bloating, Constipation, Diarrhea, Dysphagia, Indigestion, Melena, Nausea, Rectal Bleeding , Vomiting, Vomiting Blood, Other Genitourinary: reports: No Symptoms. denies: Burning, Discharge, Dysuria, Flank Pain, Frequency, Hematuria, Incontinence, Lesions, Menses, Pain, Testicular Mass, Testicular Pain, Testicular Swelling, Urgency, Vaginal Bleeding , Other Breasts: reports: Other (Rt mastectomy) Musculoskeletal: reports: No Symptoms. denies: Back Pain, Crepitus, Decreased ROM, Extremity Pain, Joint Pain, Joint Swelling, Muscle Pain, Muscle Cramps, Muscle Weakness, Other Integumentary: reports: Other (Rt 4th toe pain/erythema) Neurological: reports: No Symptoms. denies: Change in LOC, Change in Speech, Confusion, Dizziness, Headache, Incoordination, Numbness, Parasthesia, Pre- Existing Deficit, Seizure, Syncope, Tremors, Unsteady Gait, Weakness, Other Endocrine: reports: No Symptoms. denies: Excessive Sweating, Flushing, Increased Hunger, Increased Thirst, Intolerance to Cold, Intolerance to Heat, Unexplained Weight Gain, Unexplained Weight Loss, Other Hematology/Lymphatic: reports: No Symptoms. denies: Easily Bruised, Excessive Bleeding, Swollen Glands, Other Psychiatric: reports: No Symptoms. denies: Altered Sleep Pattern, Anxiety, Depression, Hallucinations, Panic, Paranoia, Suicidal, Other Pain Intensity: 6 Physical Exam Vital Signs: Vital Signs Temperature 98.4 F 04/08/19 10:00 Pulse Rate 72 04/08/19 10:00 Respiratory Rate 20 04/08/19 10:00 Blood Pressure 113/57 L 04/08/19 10:00 O2 Sat by Pulse Oximetry (%) 98 04/07/19 21:00 Constitutional: Yes: No Distress, Calm Eyes: Yes: Conjunctiva Clear, EOM Intact HENT: Yes: Atraumatic, Normocephalic Neck: Yes: Supple, Trachea Midline Cardiovascular: Yes: Regular Rate and Rhythm Respiratory: Yes: CTA Bilaterally Gastrointestinal: Yes: Normal Bowel Sounds, Soft Renal/: Yes: WNL Musculoskeletal: Yes: WNL Extremities: Yes: Erythema (Rt 4th toe) Edema: No Integumentary: Yes: WNL Wound/Incision: Yes: Other (Rt 4th toe erythema/tenderness/edema, +scab without drainage at this time) Psychiatric: Yes: Alert, Oriented Labs: CBC, BMP 04/08/19 08:15 04/08/19 08:15 Laboratory Tests 04/07/19 04/07/19 04/07/19 11:58 11:58 11:58 WBC 4.4 RBC 3.38 L Hgb 12.2 Hct 35.4 MCV 104.9 H MCH 36.0 H MCHC 34.3 RDW 14.7 Plt Count 298 MPV 7.7 Absolute Neuts (auto) 2.8 Neutrophils % 64.5 Lymphocytes % 23.9 Monocytes % 7.3 Eosinophils % 3.2 Basophils % 1.1 Nucleated RBC % 0 PT with INR 12.20 INR 1.03 Sodium 139 Potassium 4.1 Chloride 104 Carbon Dioxide 28 Anion Gap 7 L BUN 19.0 H Creatinine 0.8 Est GFR (CKD-EPI)AfAm 89.67 Est GFR (CKD-EPI)NonAf 77.37 POC Glucometer Random Glucose 142 H Calcium 9.8 Total Bilirubin 0.3 AST 12 L ALT 16 Alkaline Phosphatase 61 Total Protein 7.0 Albumin 3.5 04/08/19 04/08/19 04/08/19 07:05 08:15 08:15 WBC 3.2 L RBC 3.05 L Hgb 11.1 Hct 32.1 L MCV 105.3 H MCH 36.5 H MCHC 34.7 RDW 14.7 Plt Count 283 MPV 8.1 Absolute Neuts (auto) 1.7 Neutrophils % 52.6 Lymphocytes % 32.8 D Monocytes % 7.8 Eosinophils % 5.3 H Basophils % 1.5 Nucleated RBC % 0 PT with INR INR Sodium 139 Potassium 4.0 Chloride 106 Carbon Dioxide 28 Anion Gap 4 L BUN 15.8 Creatinine 0.6 Est GFR (CKD-EPI)AfAm 110.86 Est GFR (CKD-EPI)NonAf 95.65 POC Glucometer 118 Random Glucose 104 Calcium 9.0 Total Bilirubin 0.4 AST 7 L ALT 12 L Alkaline Phosphatase 46 Total Protein 5.8 L Albumin 2.9 L 04/08/19 12:33 WBC RBC Hgb Hct MCV MCH MCHC RDW Plt Count MPV Absolute Neuts (auto) Neutrophils % Lymphocytes % Monocytes % Eosinophils % Basophils % Nucleated RBC % PT with INR INR Sodium Potassium Chloride Carbon Dioxide Anion Gap BUN Creatinine Est GFR (CKD-EPI)AfAm Est GFR (CKD-EPI)NonAf POC Glucometer 106 Random Glucose Calcium Total Bilirubin AST ALT Alkaline Phosphatase Total Protein Albumin Imaging - Results Chest X-ray: Report Reviewed (clear) Problem List - Problems (1) Osteomyelitis Code(s): M86.9 - OSTEOMYELITIS, UNSPECIFIED Qualifiers: Osteomyelitis type: other Osteomyelitis location: other site Qualified Code(s): M86.8X8 - Other osteomyelitis, other site (2) Peripheral arterial disease Code(s): I73.9 - PERIPHERAL VASCULAR DISEASE, UNSPECIFIED (3) Toe infection Code(s): L08.9 - LOCAL INFECTION OF THE SKIN AND SUBCUTANEOUS TISSUE, UNSP (4) HTN (hypertension) Code(s): I10 - ESSENTIAL (PRIMARY) HYPERTENSION Qualifiers: (5) Hyperglycemia Code(s): R73.9 - HYPERGLYCEMIA, UNSPECIFIED (6) Metastatic breast carcinoma Code(s): C50.919 - MALIGNANT NEOPLASM OF UNSP SITE OF UNSPECIFIED FEMALE BREAST Assessment/Plan 63 y.o. female with PMH of Breast CA with mets to lung s/p mastectomy and chemo and has been on Ibrance and experimental GDC, drug-induced hyperglycemia, PVD presents with c/o non-healing infected Rt 4th toe ulcer despite course of IV antibiotics with increased pain/edema/erythema/purulent drainage in the past 4 days Non-healing infected Rt foot ulcer/toe cellulitis/OM Breast CA with metastasis Hyperglycemia (drug-induced, now off) PVD SFA occlusion s/p angiogram/stent -- failed despite 5 wk course of IV antibiotics/HBO -- awaiting toe amputation -- broad spectrum antibiotics for now -- pain control -- maintain glycemic control -- Podiatry following Will follow Thank you
[2019-04-08] MEDS: VANCOMYCIN 1 GRAM (PRE-DOCKED) 1,000 MG/250 ML BAG IVPB SCH (15:08)
[2019-04-08] MEDS ORDERED: ROSUVASTATIN CA 10 MG TABLET (FP) PO SCH (22:00)
--- NOTE | 2019-04-08 22:31 | PN ---
Progress Note, Physician History of Present Illness: Pt still having pain in foot - Current Medication List Current Medications: Active Medications Acetaminophen/Codeine Phosphate (Tylenol # 3 -) 1 tab PO Q6H PRN PRN Reason: pain 2-10 Last Admin: 04/08/19 12:31 Dose: 1 tab Amlodipine Besylate (Norvasc -) 5 mg PO DAILY [facility] Last Admin: 04/08/19 10:15 Dose: 5 mg Hydrochlorothiazide (Hctz -) 12.5 mg PO DAILY [facility] Last Admin: 04/08/19 10:15 Dose: 12.5 mg Vancomycin HCl (Vancomycin (Pre-Docked)) 1,000 mg in 250 mls @ 166.667 mls/hr IVPB Q12H [facility] Last Admin: 04/08/19 15:08 Dose: 166.667 mls/hr Piperacillin Sod/Tazobactam (Sod 3.375 gm/ Dextrose) 50 mls @ 100 mls/hr IVPB Q8H-IV [facility]; Protocol Lisinopril (Prinivil) 20 mg PO DAILY [facility] Last Admin: 04/08/19 10:15 Dose: 20 mg Rosuvastatin Calcium (Crestor -) 10 mg PO HS [facility] Last Admin: 04/08/19 21:25 Dose: 10 mg - Objective Vital Signs: Vital Signs Temperature 98.7 F 04/08/19 18:44 Pulse Rate 71 04/08/19 18:44 Respiratory Rate 20 04/08/19 18:44 Blood Pressure 124/62 04/08/19 18:44 O2 Sat by Pulse Oximetry (%) 99 04/08/19 09:00 Neck: Yes: WNL, Supple Cardiovascular: Yes: WNL, Regular Rate and Rhythm Respiratory: Yes: WNL, Regular, CTA Bilaterally Gastrointestinal: Yes: WNL, Normal Bowel Sounds, Soft Extremities: Yes: Other (Rt 4th toe w/ ulcer and erythema) Labs: CBC, BMP 04/08/19 08:15 04/08/19 08:15 INR, PTT INR 1.03 (0.83-1.09) 04/07/19 11:58 Problem List - Problems (1) Osteomyelitis Assessment/Plan: Podiatry consult noted Pt is medically cleared for surgery on 04/09/19 Pt stopped eliquis on 04/04/19 Cont wound care Cont IV antibxs ID consult noted Code(s): M86.9 - OSTEOMYELITIS, UNSPECIFIED Qualifiers: Osteomyelitis type: other Osteomyelitis location: other site Qualified Code(s): M86.8X8 - Other osteomyelitis, other site (2) HLD (hyperlipidemia) Assessment/Plan: Cont crestor Code(s): E78.5 - HYPERLIPIDEMIA, UNSPECIFIED (3) HTN (hypertension) Assessment/Plan: BP stable Cont antihypertensives Code(s): I10 - ESSENTIAL (PRIMARY) HYPERTENSION (4) Peripheral arterial disease Code(s): I73.9 - PERIPHERAL VASCULAR DISEASE, UNSPECIFIED (5) Metastatic breast carcinoma Code(s): C50.919 - MALIGNANT NEOPLASM OF UNSP SITE OF UNSPECIFIED FEMALE BREAST
[2019-04-08] MEDS ORDERED: ZOLPIDEM TARTRATE 5 MG TABLET PO ONE (22:45)
[2019-04-09] MEDS ORDERED: PIPERACILLIN/TAZOBACTAM 3.375 GM VIAL IVPB ONE ×3 (01:11→18:52)
[2019-04-09] MEDS ORDERED: DEXTROSE 5%-WATER - 50 ML IVPB ONE ×3 (01:11→18:52)
[2019-04-09] MEDS: PIPERACILLIN/TAZOB 3.375 GM 3.375 GM in DEXTROSE 5%-WATER - 50 ML IVPB SCH ×4 (01:15→19:09)
[2019-04-09] MEDS: VANCOMYCIN 1 GRAM (PRE-DOCKED) 1,000 MG/250 ML BAG IVPB SCH ×2 (03:07→17:02)
[2019-04-09] MEDS: HYDROCHLOROTHIAZIDE 12.5 MG CAPSULE (FP) PO SCH (09:55)
[2019-04-09] MEDS: amLODIPine BESYLATE 5 MG TABLET (FP) PO SCH (09:55)
[2019-04-09] MEDS: LISINOPRIL 20 MG TABLET (FP) PO SCH (09:56)
--- NOTE | 2019-04-09 13:16 | PN ---
Progress Note, Physician History of Present Illness: stable no new issues patient for surgery this morning - Current Medication List Current Medications: Active Medications Acetaminophen/Codeine Phosphate (Tylenol # 3 -) 1 tab PO Q6H PRN PRN Reason: pain 2-10 Last Admin: 04/08/19 12:31 Dose: 1 tab Amlodipine Besylate (Norvasc -) 5 mg PO DAILY [facility] Last Admin: 04/09/19 09:55 Dose: 5 mg Hydrochlorothiazide (Hctz -) 12.5 mg PO DAILY [facility] Last Admin: 04/09/19 09:55 Dose: 12.5 mg Vancomycin HCl (Vancomycin (Pre-Docked)) 1,000 mg in 250 mls @ 166.667 mls/hr IVPB Q12H [facility] Last Admin: 04/09/19 03:07 Dose: 166.667 mls/hr Piperacillin Sod/Tazobactam (Sod 3.375 gm/ Dextrose) 50 mls @ 100 mls/hr IVPB Q8H-IV [facility]; Protocol Last Admin: 04/09/19 09:56 Dose: 100 mls/hr Lisinopril (Prinivil) 20 mg PO DAILY [facility] Last Admin: 04/09/19 09:56 Dose: 20 mg Rosuvastatin Calcium (Crestor -) 10 mg PO HS [facility] Last Admin: 04/08/19 21:25 Dose: 10 mg - Objective Vital Signs: Vital Signs Temperature 98.3 F 04/09/19 12:54 Pulse Rate 74 04/09/19 12:54 Respiratory Rate 15 04/09/19 12:54 Blood Pressure 141/68 04/09/19 12:54 O2 Sat by Pulse Oximetry (%) 100 04/08/19 21:00 Constitutional: Yes: No Distress, Calm Cardiovascular: Yes: S1, S2 Respiratory: Yes: Regular, CTA Bilaterally Gastrointestinal: Yes: Normal Bowel Sounds, Soft Musculoskeletal: Yes: WNL Extremities: Yes: Other Wound/Incision: Yes: Open to air, Reddened, Excoriated Neurological: Yes: Alert, Oriented Psychiatric: Yes: Alert, Oriented Labs: CBC, BMP 04/08/19 08:15 04/08/19 08:15 INR, PTT INR 1.03 (0.83-1.09) 04/07/19 11:58 Assessment/Plan Problem List - Problems (1) Osteomyelitis Code(s): M86.9 - OSTEOMYELITIS, UNSPECIFIED Qualifiers: Osteomyelitis type: other Osteomyelitis location: other site Qualified Code(s): M86.8X8 - Other osteomyelitis, other site (2) Peripheral arterial disease Code(s): I73.9 - PERIPHERAL VASCULAR DISEASE, UNSPECIFIED (3) Toe infection Code(s): L08.9 - LOCAL INFECTION OF THE SKIN AND SUBCUTANEOUS TISSUE, UNSP (4) HTN (hypertension) Code(s): I10 - ESSENTIAL (PRIMARY) HYPERTENSION Qualifiers: (5) Hyperglycemia Code(s): R73.9 - HYPERGLYCEMIA, UNSPECIFIED (6) Metastatic breast carcinoma Code(s): C50.919 - MALIGNANT NEOPLASM OF UNSP SITE OF UNSPECIFIED FEMALE BREAST Assessment/Plan 63 y.o. female with PMH of Breast CA with mets to lung s/p mastectomy and chemo and has been on Ibrance and experimental GDC, drug-induced hyperglycemia, PVD presents with c/o non-healing infected Rt 4th toe ulcer despite course of IV antibiotics with increased pain/edema/erythema/purulent drainage in the past 4 days Non-healing infected Rt foot ulcer/toe cellulitis/OM Breast CA with metastasis Hyperglycemia (drug-induced, now off) PVD SFA occlusion s/p angiogram/stent -- failed despite 5 wk course of IV antibiotics/HBO -- awaiting toe amputation -- continue abx -- pain control -- maintain glycemic control -- Podiatry following Will follow Thank you
--- NOTE | 2019-04-09 13:51 | PN ---
Progress Note (short form) - Note Progress Note: Pt seen in bed. Ready for OR today. +open wound chronic om 4th toe right om chronic non healing wound Pt agrees with tx plan of amputation to be done today.
[2019-04-09] MEDS ORDERED: PROPOFOL 20 ML ONE ×2 (13:54→14:39)
[2019-04-09] MEDS ORDERED: MIDAZOLAM HCL 2 MG/2 ML SINGLE DOSE VIAL ONE ×4 (13:54→14:38)
[2019-04-09] MEDS ORDERED: LIDOCAINE HCL 1%, 10 MG/ML (20ML VIAL) ONE (13:57)
[2019-04-09] MEDS ORDERED: BUPIVACAINE HCL/PF 0.5% (5 MG/ML) 30 ML VIAL IJ ONE ×2 (13:58→14:38)
[2019-04-09] MEDS ORDERED: SODIUM CHLORIDE 0.9% P/F 10 ML VIAL IJ ONE (14:35)
[2019-04-09] MEDS ORDERED: ePHEDrine SULFATE 50 MG/1 ML AMPULE ONE (14:38)
[2019-04-09] MEDS ORDERED: LIDOCAINE HCL 1%, 10 MG/ML (20ML VIAL) NR ONE (14:38)
[2019-04-09] MEDS ORDERED: ONDANSETRON 4 MG/2 ML VIAL IVPUSH PRN (15:12)
[2019-04-09 16:33] LABS: EOS % 3.7 % (0-4.5); HEMATOCRIT 34.1 % (32.4-45.2); HEMOGLOBIN 11.7 GM/dL (10.7-15.3); LYMPH % 30.7 % (8-40); MCH 35.9 pg (25.7-33.7); MCHC 34.3 g/dl (32.0-36.0); MEAN CELL VOLUME 104.4 fl (80-96); MEAN PLT VOLUME 7.7 fl (7.5-11.1); MONO % 6.9 % (3.8-10.2); NEUT % 57.7 % (42.8-82.8); PLATELET COUNT 313 K/MM3 (134-434); RBC 3.26 M/mm3 (3.60-5.2); RDW 14.4 % (11.6-15.6); WHITE BLOOD COUNT 3.9 K/mm3 (4.0-10.0)
[2019-04-09] MEDS: LACTATED RINGERS SOLUTION 1,000 ML IV SCH ×3 (17:02→22:48)
[2019-04-09] MEDS ORDERED: ACETAMINOPHEN WITH CODEINE 300MG/30MG TABLET PO PRN (18:37)
--- NOTE | 2019-04-09 21:23 | OP ---
Operative Note - Note: Operative Date: 04/09/19 Pre-Operative Diagnosis: Chronic wound right 4th toe non healing with OM Operation: Amputation 4th toe right Findings: Necrotic wound with bone destruction IPJ Post-Operative Diagnosis: Same as Pre-op Surgeon: Shanon Anders [employer] Machine Operator: Rizwan Siddiqi Anesthesia: Local, MAC Specimens Removed: bone and soft tissue Estimated Blood Loss (mls): 5 Instrument used (Debridements only): 15 blade Operative Report Dictated: No
[2019-04-09] MEDS: ROSUVASTATIN CA 10 MG TABLET (FP) PO SCH (21:40)
[2019-04-09] MEDS: MORPHINE SULFATE 2 MG/ML VIAL IVPUSH PRN (22:32)
[2019-04-09] MEDS: MELATONIN 5 MG TABLETS PO PRN (22:39)
--- NOTE | 2019-04-09 22:46 | PN ---
Progress Note, Physician - Current Medication List Current Medications: Active Medications Amlodipine Besylate (Norvasc -) 5 mg PO DAILY [facility] Fentanyl (Sublimaze Injection -) 25 mcg IVPUSH [id number] PRN PRN Reason: PAIN-PACU ORDER X 4 DOSES ONLY Hydrochlorothiazide (Hctz -) 12.5 mg PO DAILY [facility] Lactated Ringer's (Lactated Ringers Solution) 1,000 mls @ 75 mls/hr IV [facility] Last Admin: 04/09/19 17:08 Dose: 75 mls/hr Vancomycin HCl (Vancomycin (Pre-Docked)) 1,000 mg in 250 mls @ 166.667 mls/hr IVPB Q12H [facility] Piperacillin Sod/Tazobactam (Sod 3.375 gm/ Dextrose) 50 mls @ 100 mls/hr IVPB Q8H-IV [facility]; Protocol Last Admin: 04/09/19 18:56 Dose: 100 mls/hr Lisinopril (Prinivil) 20 mg PO DAILY [facility] Melatonin (Melatonin) 5 mg PO HS PRN PRN Reason: INSOMNIA Last Admin: 04/09/19 22:39 Dose: 5 mg Morphine Sulfate (Morphine Sulfate) 2 mg IVPUSH Q6H PRN PRN Reason: pain 2-10 Last Admin: 04/09/19 22:32 Dose: 2 mg Ondansetron HCl (Zofran Injection) 4 mg IVPUSH Q6H PRN PRN Reason: NAUSEA AND/OR VOMITING Rosuvastatin Calcium (Crestor -) 10 mg PO HS [facility] Last Admin: 04/09/19 21:40 Dose: 10 mg - Objective Vital Signs: Vital Signs Temperature 98.0 F 04/09/19 17:23 Pulse Rate 77 04/09/19 17:23 Respiratory Rate 17 04/09/19 20:18 Blood Pressure 179/78 H 04/09/19 17:23 O2 Sat by Pulse Oximetry (%) 96 04/09/19 20:18 Labs: CBC, BMP 04/09/19 16:10 04/08/19 08:15 INR, PTT INR 1.03 (0.83-1.09) 04/07/19 11:58 Problem List - Problems (1) Osteomyelitis Code(s): M86.9 - OSTEOMYELITIS, UNSPECIFIED Qualifiers: Osteomyelitis type: other Osteomyelitis location: other site Qualified Code(s): M86.8X8 - Other osteomyelitis, other site (2) HLD (hyperlipidemia) Code(s): E78.5 - HYPERLIPIDEMIA, UNSPECIFIED (3) HTN (hypertension) Code(s): I10 - ESSENTIAL (PRIMARY) HYPERTENSION (4) Peripheral arterial disease Code(s): I73.9 - PERIPHERAL VASCULAR DISEASE, UNSPECIFIED (5) Metastatic breast carcinoma Code(s): C50.919 - MALIGNANT NEOPLASM OF UNSP SITE OF UNSPECIFIED FEMALE BREAST
[2019-04-10] MEDS ORDERED: PIPERACILLIN/TAZOBACTAM 3.375 GM VIAL IVPB ONE ×3 (01:43→17:14)
[2019-04-10] MEDS ORDERED: DEXTROSE 5%-WATER - 50 ML IVPB ONE ×3 (01:44→17:14)
[2019-04-10] MEDS: PIPERACILLIN/TAZOB 3.375 GM 3.375 GM in DEXTROSE 5%-WATER - 50 ML IVPB SCH ×3 (01:57→17:33)
[2019-04-10] MEDS ORDERED: PIPERACILLIN/TAZOB 3.375 GM 3.375 GM in DEXTROSE 5%-WATER - 50 ML IVPB SCH (02:00)
[2019-04-10] MEDS ORDERED: PT OWN MED DRAWER 7, Y5N ONE (03:21)
[2019-04-10] MEDS: MORPHINE SULFATE 2 MG/ML VIAL IVPUSH PRN ×4 (03:38→22:00)
[2019-04-10] MEDS: VANCOMYCIN 1 GRAM (PRE-DOCKED) 1,000 MG/250 ML BAG IVPB SCH ×2 (05:28→14:05)
--- NOTE | 2019-04-10 07:40 | PN ---
Progress Note (short form) - Note Progress Note: Anesthesia Post Op Note Pt seen s/p MAC for toe amp Pt awake alert NAD denies n/v, no puritis Ambulating no urinary retention Pt c/o poor pain control VSS no apparent anesthesia complications suggest regimen of tylenol/ibuprofen for pain management Fuad Leonardo.
[2019-04-10 09:02] LABS: BASO % 1.6 % (0-2.0); EOS % 3.4 % (0-4.5); HEMATOCRIT 33.5 % (32.4-45.2); HEMOGLOBIN 11.7 GM/dL (10.7-15.3); LYMPH % 30.4 % (8-40); MCH 36.1 pg (25.7-33.7); MEAN CELL VOLUME 103.1 fl (80-96); MEAN PLT VOLUME 7.7 fl (7.5-11.1); MONO % 8.1 % (3.8-10.2); NEUT % 56.5 % (42.8-82.8); PLATELET COUNT 335 K/MM3 (134-434); RBC 3.25 M/mm3 (3.60-5.2); RDW 14.3 % (11.6-15.6); WHITE BLOOD COUNT 3.6 K/mm3 (4.0-10.0)
[2019-04-10 09:34] LABS: BILIRUBIN,TOTAL 0.4 mg/dL (0.2-1); BLOOD UREA NITROGEN 13.4 mg/dL (7-18); CALCIUM 9.4 mg/dL (8.5-10.1); CREATININE 0.6 mg/dL (0.55-1.3); POTASSIUM 3.9 mmol/L (3.5-5.1); TOT PROT 6.3 g/dl (6.4-8.2)
[2019-04-10] MEDS: amLODIPine BESYLATE 5 MG TABLET (FP) PO SCH (09:42)
[2019-04-10] MEDS: HYDROCHLOROTHIAZIDE 12.5 MG CAPSULE (FP) PO SCH (09:42)
[2019-04-10] MEDS: APIXABAN 5 MG TABLET PO SCH ×2 (09:43→22:00)
[2019-04-10] MEDS: LISINOPRIL 20 MG TABLET (FP) PO SCH (09:43)
--- NOTE | 2019-04-10 11:43 | PN ---
Progress Note, Physician History of Present Illness: stable no new issues - Current Medication List Current Medications: Active Medications Amlodipine Besylate (Norvasc -) 5 mg PO DAILY [facility] Last Admin: 04/10/19 09:42 Dose: 5 mg Apixaban (Eliquis -) 5 mg PO BID [facility] Last Admin: 04/10/19 09:43 Dose: 5 mg Fentanyl (Sublimaze Injection -) 25 mcg IVPUSH [id number] PRN PRN Reason: PAIN-PACU ORDER X 4 DOSES ONLY Hydrochlorothiazide (Hctz -) 12.5 mg PO DAILY [facility] Last Admin: 04/10/19 09:42 Dose: 12.5 mg Lactated Ringer's (Lactated Ringers Solution) 1,000 mls @ 75 mls/hr IV ASDIR [facility] Last Admin: 04/09/19 22:48 Dose: 75 mls/hr Vancomycin HCl (Vancomycin (Pre-Docked)) 1,000 mg in 250 mls @ 166.667 mls/hr IVPB Q12H [facility] Last Admin: 04/10/19 05:28 Dose: 166.667 mls/hr Piperacillin Sod/Tazobactam (Sod 3.375 gm/ Dextrose) 50 mls @ 100 mls/hr IVPB Q8H-IV [facility]; Protocol Last Admin: 04/10/19 09:43 Dose: 100 mls/hr Lisinopril (Prinivil) 20 mg PO DAILY [facility] Last Admin: 04/10/19 09:43 Dose: 20 mg Melatonin (Melatonin) 5 mg PO HS PRN PRN Reason: INSOMNIA Last Admin: 04/09/19 22:39 Dose: 5 mg Morphine Sulfate (Morphine Sulfate) 2 mg IVPUSH Q6H PRN PRN Reason: pain 2-10 Last Admin: 04/10/19 09:42 Dose: 2 mg Ondansetron HCl (Zofran Injection) 4 mg IVPUSH Q6H PRN PRN Reason: NAUSEA AND/OR VOMITING Rosuvastatin Calcium (Crestor -) 10 mg PO HS [facility] Last Admin: 04/09/19 21:40 Dose: 10 mg - Objective Vital Signs: Vital Signs Temperature 98.1 F 04/10/19 06:00 Pulse Rate 73 04/10/19 06:00 Respiratory Rate 20 04/10/19 06:00 Blood Pressure 129/67 04/10/19 06:00 O2 Sat by Pulse Oximetry (%) 96 04/09/19 20:18 Constitutional: Yes: No Distress, Calm Cardiovascular: Yes: S1, S2 Respiratory: Yes: Regular, CTA Bilaterally Gastrointestinal: Yes: Normal Bowel Sounds, Soft Musculoskeletal: Yes: WNL Extremities: Yes: Other Neurological: Yes: Alert, Oriented Psychiatric: Yes: Alert, Oriented Labs: CBC, BMP 04/10/19 07:30 04/10/19 07:30 INR, PTT INR 1.03 (0.83-1.09) 04/07/19 11:58 Assessment/Plan Problem List - Problems (1) Osteomyelitis Code(s): M86.9 - OSTEOMYELITIS, UNSPECIFIED Qualifiers: Osteomyelitis type: other Osteomyelitis location: other site Qualified Code(s): M86.8X8 - Other osteomyelitis, other site (2) Peripheral arterial disease Code(s): I73.9 - PERIPHERAL VASCULAR DISEASE, UNSPECIFIED (3) Toe infection Code(s): L08.9 - LOCAL INFECTION OF THE SKIN AND SUBCUTANEOUS TISSUE, UNSP (4) HTN (hypertension) Code(s): I10 - ESSENTIAL (PRIMARY) HYPERTENSION Qualifiers: (5) Hyperglycemia Code(s): R73.9 - HYPERGLYCEMIA, UNSPECIFIED (6) Metastatic breast carcinoma Code(s): C50.919 - MALIGNANT NEOPLASM OF UNSP SITE OF UNSPECIFIED FEMALE BREAST Assessment/Plan 63 y.o. female with PMH of Breast CA with mets to lung s/p mastectomy and chemo and has been on Ibrance and experimental GDC, drug-induced hyperglycemia, PVD presents with c/o non-healing infected Rt 4th toe ulcer despite course of IV antibiotics with increased pain/edema/erythema/purulent drainage in the past 4 days Non-healing infected Rt foot ulcer/toe cellulitis/OM Breast CA with metastasis Hyperglycemia (drug-induced, now off) PVD SFA occlusion s/p angiogram/stent -abx surgery rest as per the team
[2019-04-10] MEDS: LACTATED RINGERS SOLUTION 1,000 ML IV SCH (17:31)
--- NOTE | 2019-04-10 21:47 | PN ---
Progress Note (short form) - Note Progress Note: Pt seen in bed. POD#1. Mild pain. +dressing clean dry and intact normal post op Dressing change tomorrow. Bathroom privelages only. will follow.
[2019-04-10] MEDS: ROSUVASTATIN CA 10 MG TABLET (FP) PO SCH (22:00)
[2019-04-10] MEDS: MELATONIN 5 MG TABLETS PO PRN (22:00)
--- NOTE | 2019-04-10 22:16 | PN ---
Progress Note, Physician - Current Medication List Current Medications: Active Medications Amlodipine Besylate (Norvasc -) 5 mg PO DAILY [facility] Last Admin: 04/10/19 09:42 Dose: 5 mg Apixaban (Eliquis -) 5 mg PO BID [facility] Last Admin: 04/10/19 22:00 Dose: 5 mg Fentanyl (Sublimaze Injection -) 25 mcg IVPUSH [id number] PRN PRN Reason: PAIN-PACU ORDER X 4 DOSES ONLY Hydrochlorothiazide (Hctz -) 12.5 mg PO DAILY [facility] Last Admin: 04/10/19 09:42 Dose: 12.5 mg Vancomycin HCl (Vancomycin (Pre-Docked)) 1,000 mg in 250 mls @ 166.667 mls/hr IVPB Q12H [facility] Last Admin: 04/10/19 14:05 Dose: 166.667 mls/hr Piperacillin Sod/Tazobactam (Sod 3.375 gm/ Dextrose) 50 mls @ 100 mls/hr IVPB Q8H-IV [facility]; Protocol Last Admin: 04/10/19 17:33 Dose: 100 mls/hr Lisinopril (Prinivil) 20 mg PO DAILY [facility] Last Admin: 04/10/19 09:43 Dose: 20 mg Melatonin (Melatonin) 5 mg PO HS PRN PRN Reason: INSOMNIA Last Admin: 04/10/19 22:00 Dose: 5 mg Morphine Sulfate (Morphine Sulfate) 2 mg IVPUSH Q6H PRN PRN Reason: pain 2-10 Last Admin: 04/10/19 22:00 Dose: 2 mg Ondansetron HCl (Zofran Injection) 4 mg IVPUSH Q6H PRN PRN Reason: NAUSEA AND/OR VOMITING Rosuvastatin Calcium (Crestor -) 10 mg PO HS [facility] Last Admin: 04/10/19 22:00 Dose: 10 mg - Objective Vital Signs: Vital Signs Temperature 98.7 F 04/10/19 17:42 Pulse Rate 76 04/10/19 17:42 Respiratory Rate 20 04/10/19 17:42 Blood Pressure 140/79 04/10/19 17:42 O2 Sat by Pulse Oximetry (%) 98 04/10/19 09:00 Labs: CBC, BMP 04/10/19 07:30 04/10/19 07:30 INR, PTT INR 1.03 (0.83-1.09) 04/07/19 11:58 Problem List - Problems (1) Osteomyelitis Code(s): M86.9 - OSTEOMYELITIS, UNSPECIFIED Qualifiers: Osteomyelitis type: other Osteomyelitis location: other site Qualified Code(s): M86.8X8 - Other osteomyelitis, other site (2) HLD (hyperlipidemia) Code(s): E78.5 - HYPERLIPIDEMIA, UNSPECIFIED (3) HTN (hypertension) Code(s): I10 - ESSENTIAL (PRIMARY) HYPERTENSION (4) Peripheral arterial disease Code(s): I73.9 - PERIPHERAL VASCULAR DISEASE, UNSPECIFIED (5) Metastatic breast carcinoma Code(s): C50.919 - MALIGNANT NEOPLASM OF UNSP SITE OF UNSPECIFIED FEMALE BREAST
[2019-04-11] MEDS ORDERED: PIPERACILLIN/TAZOBACTAM 3.375 GM VIAL IVPB ONE ×2 (01:07→09:37)
[2019-04-11] MEDS ORDERED: DEXTROSE 5%-WATER - 50 ML IVPB ONE ×2 (01:07→09:37)
[2019-04-11] MEDS: PIPERACILLIN/TAZOB 3.375 GM 3.375 GM in DEXTROSE 5%-WATER - 50 ML IVPB SCH ×2 (01:50→09:44)
[2019-04-11] MEDS: VANCOMYCIN 1 GRAM (PRE-DOCKED) 1,000 MG/250 ML BAG IVPB SCH (02:50)
[2019-04-11] MEDS ORDERED: PT OWN MED DRAWER 7, Y5N ONE (08:56)
[2019-04-11] MEDS: amLODIPine BESYLATE 5 MG TABLET (FP) PO SCH (09:43)
[2019-04-11] MEDS: HYDROCHLOROTHIAZIDE 12.5 MG CAPSULE (FP) PO SCH (09:43)
[2019-04-11] MEDS: LISINOPRIL 20 MG TABLET (FP) PO SCH (09:44)
[2019-04-11] MEDS: APIXABAN 5 MG TABLET PO SCH ×2 (09:44→23:04)
[2019-04-11] MEDS: MORPHINE SULFATE 2 MG/ML VIAL IVPUSH PRN ×2 (09:48→23:06)
--- NOTE | 2019-04-11 11:32 | PN ---
Progress Note, Physician History of Present Illness: post op doing well pain unable to bear weight - Current Medication List Current Medications: Active Medications Amlodipine Besylate (Norvasc -) 5 mg PO DAILY [facility] Last Admin: 04/11/19 09:43 Dose: 5 mg Apixaban (Eliquis -) 5 mg PO BID [facility] Last Admin: 04/11/19 09:44 Dose: 5 mg Fentanyl (Sublimaze Injection -) 25 mcg IVPUSH [id number] PRN PRN Reason: PAIN-PACU ORDER X 4 DOSES ONLY Hydrochlorothiazide (Hctz -) 12.5 mg PO DAILY [facility] Last Admin: 04/11/19 09:43 Dose: 12.5 mg Vancomycin HCl (Vancomycin (Pre-Docked)) 1,000 mg in 250 mls @ 166.667 mls/hr IVPB Q12H [facility] Last Admin: 04/11/19 02:50 Dose: 166.667 mls/hr Piperacillin Sod/Tazobactam (Sod 3.375 gm/ Dextrose) 50 mls @ 100 mls/hr IVPB Q8H-IV [facility]; Protocol Last Admin: 04/11/19 09:44 Dose: 100 mls/hr Lisinopril (Prinivil) 20 mg PO DAILY [facility] Last Admin: 04/11/19 09:44 Dose: 20 mg Melatonin (Melatonin) 5 mg PO HS PRN PRN Reason: INSOMNIA Last Admin: 04/10/19 22:00 Dose: 5 mg Morphine Sulfate (Morphine Sulfate) 2 mg IVPUSH Q6H PRN PRN Reason: pain 2-10 Last Admin: 04/11/19 09:48 Dose: 2 mg Ondansetron HCl (Zofran Injection) 4 mg IVPUSH Q6H PRN PRN Reason: NAUSEA AND/OR VOMITING Rosuvastatin Calcium (Crestor -) 10 mg PO HS [facility] Last Admin: 04/10/19 22:00 Dose: 10 mg - Objective Vital Signs: Vital Signs Temperature 98.8 F 04/11/19 09:17 Pulse Rate 84 04/11/19 09:17 Respiratory Rate 18 04/11/19 09:17 Blood Pressure 135/69 04/11/19 09:17 O2 Sat by Pulse Oximetry (%) 96 04/10/19 21:00 Constitutional: Yes: No Distress, Calm Cardiovascular: Yes: S1, S2 Respiratory: Yes: Regular, CTA Bilaterally Gastrointestinal: Yes: Normal Bowel Sounds, Soft Musculoskeletal: Yes: WNL Extremities: Yes: Other Wound/Incision: Yes: Dressing Dry and Intact Neurological: Yes: Alert, Oriented Psychiatric: Yes: Alert, Oriented Labs: CBC, BMP 04/10/19 07:30 04/10/19 07:30 INR, PTT INR 1.03 (0.83-1.09) 04/07/19 11:58 Assessment/Plan Problem List - Problems (1) Osteomyelitis Code(s): M86.9 - OSTEOMYELITIS, UNSPECIFIED Qualifiers: Osteomyelitis type: other Osteomyelitis location: other site Qualified Code(s): M86.8X8 - Other osteomyelitis, other site (2) Peripheral arterial disease Code(s): I73.9 - PERIPHERAL VASCULAR DISEASE, UNSPECIFIED (3) Toe infection Code(s): L08.9 - LOCAL INFECTION OF THE SKIN AND SUBCUTANEOUS TISSUE, UNSP (4) HTN (hypertension) Code(s): I10 - ESSENTIAL (PRIMARY) HYPERTENSION Qualifiers: (5) Hyperglycemia Code(s): R73.9 - HYPERGLYCEMIA, UNSPECIFIED (6) Metastatic breast carcinoma Code(s): C50.919 - MALIGNANT NEOPLASM OF UNSP SITE OF UNSPECIFIED FEMALE BREAST Assessment/Plan 63 y.o. female with PMH of Breast CA with mets to lung s/p mastectomy and chemo and has been on Ibrance and experimental GDC, drug-induced hyperglycemia, PVD presents with c/o non-healing infected Rt 4th toe ulcer despite course of IV antibiotics with increased pain/edema/erythema/purulent drainage in the past 4 days Non-healing infected Rt foot ulcer/toe cellulitis/OM Breast CA with metastasis Hyperglycemia (drug-induced, now off) PVD SFA occlusion s/p angiogram/stent -abx oral now wound care rest as per the team
[2019-04-11] MEDS: AMOX TR/POT CLAV 875MG/125MG TABLETS (FP) PO SCH (17:04)
--- NOTE | 2019-04-11 18:07 | PATH ---
Surgical Pathology Report Patient Name: ROSALBA ALVES Med. Rec. #: [id number] /Age/Gender: 1955 (Age: 63) / F Account: [id number] Location: [facility] MED/SURG Taken: 04/09/2019 Received: 04/10/2019 Reported: 04/11/2019 Physicians: CLINT Ziegler M.D. Specimen(s) Received RIGHT FOOT 4TH DIGIT Clinical History Infection of fourth digit right foot Final Diagnosis RIGHT FOOT FOURTH DIGIT, AMPUTATION: AMPUTATED TOE SHOWING ULCERATION, SEVERE ACUTE AND CHRONIC INFLAMMATION WITH ABSCESS FORMATION. BONE WITH ACUTE AND CHRONIC OSTEOMYELITIS. BONE MARGIN IS NEGATIVE FOR OSTEOMYELITIS. VIABLE SKIN AND SOFT TISSUE MARGIN. Electronically Signed Laly Jensen M.D. Gross Description Received in formalin labeled "right foot fourth digit," is a 3.7 x 1.7 x 1.5 cm toe amputation. The epidermal surface displays a 0.7 x 0.6 cm ulcerated lesion at 1.2 cm from the skin and soft tissue margin. The lesion possibly involves the underlying bone which is markedly softened. Obstetrician And Gynaecologist sections are submitted in 3 cassettes as follows: 1-lesion with underlying bone, following decalcification; 2-bone margin, following decalcification; 3-skin and soft tissue margin. 04/10/201904/10/2019
--- NOTE | 2019-04-11 20:52 | PN ---
Progress Note (short form) - Note Progress Note: Pt seen in bed. POD#2. Improved pain. vss +dressing clean dry and intact, -cellulitis, -drainage, +sutures intact, +mild tenderness normal post op Dressing change done. Packing removed. Betadine dressing re-applied. Bathroom privelages only. Will benefit from ortho-wedge shoe. will follow.
--- NOTE | 2019-04-11 22:23 | PN ---
Progress Note, Physician - Current Medication List Current Medications: Active Medications Amlodipine Besylate (Norvasc -) 5 mg PO DAILY [facility] Last Admin: 04/11/19 09:43 Dose: 5 mg Amoxicillin/Clavulanate Potassium (Augmentin - 875mg Tablet) 1 tab PO BID@0800, 1730 [facility] Last Admin: 04/11/19 17:04 Dose: 1 tab Apixaban (Eliquis -) 5 mg PO BID [facility] Last Admin: 04/11/19 09:44 Dose: 5 mg Fentanyl (Sublimaze Injection -) 25 mcg IVPUSH [id number] PRN PRN Reason: PAIN-PACU ORDER X 4 DOSES ONLY Hydrochlorothiazide (Hctz -) 12.5 mg PO DAILY [facility] Last Admin: 04/11/19 09:43 Dose: 12.5 mg Lisinopril (Prinivil) 20 mg PO DAILY [facility] Last Admin: 04/11/19 09:44 Dose: 20 mg Melatonin (Melatonin) 5 mg PO HS PRN PRN Reason: INSOMNIA Last Admin: 04/10/19 22:00 Dose: 5 mg Morphine Sulfate (Morphine Sulfate) 2 mg IVPUSH Q6H PRN PRN Reason: pain 2-10 Last Admin: 04/11/19 09:48 Dose: 2 mg Ondansetron HCl (Zofran Injection) 4 mg IVPUSH Q6H PRN PRN Reason: NAUSEA AND/OR VOMITING Rosuvastatin Calcium (Crestor -) 10 mg PO HS [facility] Last Admin: 04/10/19 22:00 Dose: 10 mg - Objective Vital Signs: Vital Signs Temperature 97.5 F L 04/11/19 17:30 Pulse Rate 77 04/11/19 17:30 Respiratory Rate 20 04/11/19 17:30 Blood Pressure 134/71 04/11/19 17:30 O2 Sat by Pulse Oximetry (%) 96 04/10/19 21:00 Labs: CBC, BMP 04/10/19 07:30 04/10/19 07:30 INR, PTT INR 1.03 (0.83-1.09) 04/07/19 11:58 Problem List - Problems (1) Osteomyelitis Code(s): M86.9 - OSTEOMYELITIS, UNSPECIFIED Qualifiers: Osteomyelitis type: other Osteomyelitis location: other site Qualified Code(s): M86.8X8 - Other osteomyelitis, other site (2) HLD (hyperlipidemia) Code(s): E78.5 - HYPERLIPIDEMIA, UNSPECIFIED (3) HTN (hypertension) Code(s): I10 - ESSENTIAL (PRIMARY) HYPERTENSION (4) Peripheral arterial disease Code(s): I73.9 - PERIPHERAL VASCULAR DISEASE, UNSPECIFIED (5) Metastatic breast carcinoma Code(s): C50.919 - MALIGNANT NEOPLASM OF UNSP SITE OF UNSPECIFIED FEMALE BREAST
[2019-04-11] MEDS: ROSUVASTATIN CA 10 MG TABLET (FP) PO SCH (23:04)
[2019-04-11] MEDS: MELATONIN 5 MG TABLETS PO PRN (23:06)
[2019-04-12] MEDS: MORPHINE SULFATE 2 MG/ML VIAL IVPUSH PRN ×2 (08:18→21:44)
[2019-04-12] MEDS: AMOX TR/POT CLAV 875MG/125MG TABLETS (FP) PO SCH ×2 (08:19→17:30)
[2019-04-12] MEDS: HYDROCHLOROTHIAZIDE 12.5 MG CAPSULE (FP) PO SCH (09:25)
[2019-04-12] MEDS: APIXABAN 5 MG TABLET PO SCH ×2 (09:25→21:45)
[2019-04-12] MEDS: amLODIPine BESYLATE 5 MG TABLET (FP) PO SCH (09:25)
[2019-04-12] MEDS: LISINOPRIL 20 MG TABLET (FP) PO SCH (09:25)
[2019-04-12] MEDS: ROSUVASTATIN CA 10 MG TABLET (FP) PO SCH (21:45)
[2019-04-12] MEDS: MELATONIN 5 MG TABLETS PO PRN (21:45)
--- NOTE | 2019-04-12 22:00 | PN ---
Progress Note, Physician - Current Medication List Current Medications: Active Medications Amlodipine Besylate (Norvasc -) 5 mg PO DAILY [facility] Last Admin: 04/12/19 09:25 Dose: 5 mg Amoxicillin/Clavulanate Potassium (Augmentin - 875mg Tablet) 1 tab PO BID@0800, 1730 [facility] Last Admin: 04/12/19 17:30 Dose: 1 tab Apixaban (Eliquis -) 5 mg PO BID [facility] Last Admin: 04/12/19 21:45 Dose: 5 mg Fentanyl (Sublimaze Injection -) 25 mcg IVPUSH [id number] PRN PRN Reason: PAIN-PACU ORDER X 4 DOSES ONLY Hydrochlorothiazide (Hctz -) 12.5 mg PO DAILY [facility] Last Admin: 04/12/19 09:25 Dose: 12.5 mg Lisinopril (Prinivil) 20 mg PO DAILY [facility] Last Admin: 04/12/19 09:25 Dose: 20 mg Melatonin (Melatonin) 5 mg PO HS PRN PRN Reason: INSOMNIA Last Admin: 04/12/19 21:45 Dose: 5 mg Ondansetron HCl (Zofran Injection) 4 mg IVPUSH Q6H PRN PRN Reason: NAUSEA AND/OR VOMITING Rosuvastatin Calcium (Crestor -) 10 mg PO HS [facility] Last Admin: 04/12/19 21:45 Dose: 10 mg - Objective Vital Signs: Vital Signs Temperature 98.7 F 04/12/19 17:14 Pulse Rate 76 04/12/19 17:14 Respiratory Rate 20 04/12/19 17:14 Blood Pressure 127/69 04/12/19 17:14 O2 Sat by Pulse Oximetry (%) 98 04/12/19 09:00 Labs: CBC, BMP 04/10/19 07:30 04/10/19 07:30 INR, PTT INR 1.03 (0.83-1.09) 04/07/19 11:58 Problem List - Problems (1) Osteomyelitis Code(s): M86.9 - OSTEOMYELITIS, UNSPECIFIED Qualifiers: Osteomyelitis type: other Osteomyelitis location: other site Qualified Code(s): M86.8X8 - Other osteomyelitis, other site (2) HLD (hyperlipidemia) Code(s): E78.5 - HYPERLIPIDEMIA, UNSPECIFIED (3) HTN (hypertension) Code(s): I10 - ESSENTIAL (PRIMARY) HYPERTENSION (4) Peripheral arterial disease Code(s): I73.9 - PERIPHERAL VASCULAR DISEASE, UNSPECIFIED (5) Metastatic breast carcinoma Code(s): C50.919 - MALIGNANT NEOPLASM OF UNSP SITE OF UNSPECIFIED FEMALE BREAST
[2019-04-13] MEDS: AMOX TR/POT CLAV 875MG/125MG TABLETS (FP) PO SCH (08:56)
[2019-04-13] MEDS: amLODIPine BESYLATE 5 MG TABLET (FP) PO SCH (09:03)
[2019-04-13] MEDS: LISINOPRIL 20 MG TABLET (FP) PO SCH (09:03)
[2019-04-13] MEDS: HYDROCHLOROTHIAZIDE 12.5 MG CAPSULE (FP) PO SCH (09:03)
[2019-04-13] MEDS: APIXABAN 5 MG TABLET PO SCH (09:03)
--- NOTE | 2019-04-13 10:33 | PN ---
Progress Note (short form) - Note Progress Note: Pt seen in bed. POD#3. No pain. vss +dressing clean dry and intact, -cellulitis, -drainage, +sutures intact, + resoving tenderness normal post op Dressing change done. Betadine dressing re-applied. ortho-wedge shoe ordered by patient. PTR to office Tuesday or [facility] .
--- NOTE | 2019-04-13 11:48 | PN ---
Progress Note, Physician History of Present Illness: stable no new issues - Current Medication List Current Medications: Active Medications Amlodipine Besylate (Norvasc -) 5 mg PO DAILY [facility] Last Admin: 04/13/19 09:03 Dose: 5 mg Amoxicillin/Clavulanate Potassium (Augmentin - 875mg Tablet) 1 tab PO BID@0800, 1730 [facility] Last Admin: 04/13/19 08:56 Dose: 1 tab Apixaban (Eliquis -) 5 mg PO BID [facility] Last Admin: 04/13/19 09:03 Dose: 5 mg Fentanyl (Sublimaze Injection -) 25 mcg IVPUSH [id number] PRN PRN Reason: PAIN-PACU ORDER X 4 DOSES ONLY Hydrochlorothiazide (Hctz -) 12.5 mg PO DAILY [facility] Last Admin: 04/13/19 09:03 Dose: 12.5 mg Lisinopril (Prinivil) 20 mg PO DAILY [facility] Last Admin: 04/13/19 09:03 Dose: 20 mg Melatonin (Melatonin) 5 mg PO HS PRN PRN Reason: INSOMNIA Last Admin: 04/12/19 21:45 Dose: 5 mg Ondansetron HCl (Zofran Injection) 4 mg IVPUSH Q6H PRN PRN Reason: NAUSEA AND/OR VOMITING Rosuvastatin Calcium (Crestor -) 10 mg PO HS [facility] Last Admin: 04/12/19 21:45 Dose: 10 mg - Objective Vital Signs: Vital Signs Temperature 97.7 F 04/13/19 07:55 Pulse Rate 73 04/13/19 07:55 Respiratory Rate 20 04/13/19 07:55 Blood Pressure 130/72 04/13/19 07:55 O2 Sat by Pulse Oximetry (%) 97 04/12/19 21:00 Constitutional: Yes: No Distress, Calm Cardiovascular: Yes: S1, S2 Respiratory: Yes: Regular, CTA Bilaterally Gastrointestinal: Yes: Normal Bowel Sounds, Soft Musculoskeletal: Yes: WNL Extremities: Yes: Other Wound/Incision: Yes: Dressing Dry and Intact Neurological: Yes: Alert, Oriented Psychiatric: Yes: Alert, Oriented Labs: CBC, BMP 04/10/19 07:30 04/10/19 07:30 INR, PTT INR 1.03 (0.83-1.09) 04/07/19 11:58 Assessment/Plan Problem List - Problems (1) Osteomyelitis Code(s): M86.9 - OSTEOMYELITIS, UNSPECIFIED Qualifiers: Osteomyelitis type: other Osteomyelitis location: other site Qualified Code(s): M86.8X8 - Other osteomyelitis, other site (2) Peripheral arterial disease Code(s): I73.9 - PERIPHERAL VASCULAR DISEASE, UNSPECIFIED (3) Toe infection Code(s): L08.9 - LOCAL INFECTION OF THE SKIN AND SUBCUTANEOUS TISSUE, UNSP (4) HTN (hypertension) Code(s): I10 - ESSENTIAL (PRIMARY) HYPERTENSION Qualifiers: (5) Hyperglycemia Code(s): R73.9 - HYPERGLYCEMIA, UNSPECIFIED (6) Metastatic breast carcinoma Code(s): C50.919 - MALIGNANT NEOPLASM OF UNSP SITE OF UNSPECIFIED FEMALE BREAST Assessment/Plan 63 y.o. female with PMH of Breast CA with mets to lung s/p mastectomy and chemo and has been on Ibrance and experimental GDC, drug-induced hyperglycemia, PVD presents with c/o non-healing infected Rt 4th toe ulcer despite course of IV antibiotics with increased pain/edema/erythema/purulent drainage in the past 4 days Non-healing infected Rt foot ulcer/toe cellulitis/OM Breast CA with metastasis Hyperglycemia (drug-induced, now off) PVD SFA occlusion s/p angiogram/stent plan continue current mgmt wound care physio rest as per the team
[2019-04-13 12:43] VITALS: BP 142/77; PULSE 79; TEMP 98.5
--- NOTE | 2019-05-11 18:57 | OP ---
DATE OF OPERATION: 04/09/2019 SURGEON: Shanon Anders DPM REFERENCE ARCHIVIST: Rizwan Siddiqi DPM PREOPERATIVE DIAGNOSIS: Chronic wound of the 4th toe right foot non-healing wound with osteomyelitis. POSTOPERATIVE DIAGNOSIS: Chronic wound of the right foot, non-healing, with osteomyelitis. PROCEDURE PERFORMED: Amputation of the 4th toe, right foot. DESCRIPTION OF PROCEDURE: After noting all preoperative vital signs were within normal limits and after the surgical consent was signed and witnessed, the patient was brought to the OR and placed on the table in the supine position. An IV line had been started prior to the patient coming to the OR. Once the patient was in the OR, a local infiltrate was placed in a Whitlock block fashion proximal to the toe that was going to be amputated. Once this was done, the foot was then prepped and draped in the usual sterile fashion. Once the foot was prepped and draped, attention was directed to the 4th metatarsophalangeal joint of the right foot. Utilizing a marking pen, a tennis raquet type incision was drawn. Utilizing a 15 blade, the incision was followed down to bone. Once this was done, the toe was disarticulated from the 4th metatarsophalangeal joint. Once it was disarticulated, it was removed and sent down to Pathology. At this time the wound was explored. There was no remaining necrotic tissue noted. The metatarsal head was intact. There were no signs of osteomyelitis of the metatarsal head. The wound was then flushed with copious amounts of sterile saline. The wound was then packed with Iodoform gauze and 3.0 nylon sutures were put into place in a retention suture fashion. Betadine-soaked Adaptic, dry sterile gauze and a Guy dressing were then applied. The patient tolerated the anesthesia and the procedure well. The patient returned to the recovery room with vital signs stable and vascular status intact. CLINT Ziegler/[id number] MTDD
== END 2019-04-13 14:02 | disposition home health service (06) | DRG 475 ==
LOC: JER 10:23 → JERBED 11:38 → J8W 18:36
PROVIDERS: ADMIT Internal Medicine; ATTEND Internal Medicine
PROC: 0Y6M0ZD Detachment at Right Foot, Partial 4th Ray, Open Approach (ICD-10-PCS; principal; 2019-04-09 13:30)
DX: M86.171 Other acute osteomyelitis, right ankle and foot (principal); C78.00 Secondary malignant neoplasm of unspecified lung; I70.268 Atherosclerosis of native arteries of extremities with gangrene, other extremity; M86.671 Other chronic osteomyelitis, right ankle and foot; I10 Essential (primary) hypertension; I73.9 Peripheral vascular disease, unspecified; C50.919 Malignant neoplasm of unspecified site of unspecified female breast; L97.519 Non-pressure chronic ulcer of other part of right foot with unspecified severity; R73.9 Hyperglycemia, unspecified; E78.5 Hyperlipidemia, unspecified; L03.031 Cellulitis of right toe
CPT/HCPCS: 11042; 36415; 71046-TC-FY; 73630-TC-RT-FY; 80048; 80053; 82962; 83036; 85025; 85610; 85651; 86140; 87040; 87070; 87077; 87186; 87205; 88305-TC; 88311-TC; 93005; 93010; 94760; 99284-25; G0463-25